=== PATIENT | male | born 1945 | race Caucasian/White ===

== ENCOUNTER → 2020-04-14 | Day surgery (SDC) | payer MEDICARE, OTHER ==
[2020-04-09 15:27] LABS: BASOPHILS # (AUTO) 0.1 (0.0-0.1); BASOPHILS % 0.9 % (0.0-1.0); EOSINOPHILS # (AUTO) 0.3 (0.0-0.4); EOSINOPHILS % 3.6 % (0.0-6.0); LYMPHOCYTES # (AUTO) 3.3 (1.0-3.2); LYMPHOCYTES % 35.8 % (18.0-39.1); MEAN CORPUSCULAR HEMOGLOBIN 25.9 pg (28-32); MEAN CORPUSCULAR HGB CONC 31.7 g/dL (31-35); MEAN CORPUSCULAR VOLUME 81.7 fL (81-99); MONOCYTES # (AUTO) 0.6 (0.2-0.8); MONOCYTES % 6.9 % (4.4-11.3); NEUTROPHILS # (AUTO) 4.9 (2.1-6.9); NEUTROPHILS % 52.6 % (38.7-80.0); PLATELET COUNT 237 x10e3/uL (140-360); RED BLOOD COUNT 5.02 x10e6/uL (4.3-5.7); RED CELL DISTRIBUTION WIDTH 14.8 % (11.7-14.4)
[~2020-04-14] MED LIST: ALOGLIPTIN12.5 MG PO; ALPRAZOLAM0.5 MG PO; AMLODIPINE BESY10 MG PO; CALCITRIOL0.25 MCG PO; CETIRIZINE HCL10 MG PO; FENTANYL CITRATE/PF 100MCG/2 ML INJ ONE; FUROSEMIDE40 MG PO; HYOSCYAMINE 0.125 MG TAB ONE; KETAMINE HCL INJ 50 MG/ML 10 ML VIAL ONE; LIDOCAINE HCL 1% 2 ML AMP ONE; LIDOCAINE HCL 2% LOCAL INJ 5 ML SDV VIAL INJ ONE; LOSARTAN POTASS25 MG PO; METFORMIN HCL500 MG PO; METOPROLOL SUCC25 MG PO; MIDAZOLAM HCL 2 MG/2 ML VIAL ONE; MULTIVITAMINS1 EAC7 PO; PAROXETINE HCL20 MG PO; PRILOSEC10 M1 PO; PROPOFOL IV EMULSION 10 MG/ML 20 ML VIAL ONE; SIMVASTATIN20 MG PO; VITAMIN B-121000 MCG PO; XARELTO10 MG PO
[2020-04-14 13:05] VITALS: BP 155/81
--- NOTE | 2020-04-14 13:27 | Operative Report ---
DATE OF PROCEDURE: 04/14/2020 SURGEON: Dru Portillo MD PROCEDURES: EGD with biopsies and colonoscopy with polypectomy and biopsies. INDICATION FOR EGD: Acid reflux. INDICATIONS FOR COLONOSCOPY: Surveillance colonoscopy, personal history of colon polyps. MEDICATIONS: The patient was done under MAC, please see anesthesiologist's note. PROCEDURE IN DETAIL: With the patient in the left lateral decubitus position, a flexible fiberoptic Olympus gastroscope was introduced into the esophagus under direct visualization without any difficulty. There was patchy intense erythema noted in distal esophagus. The scope was then advanced with ease into the stomach traversing a small hiatal hernia. The patient apparently is status post gastrectomy with gastrojejunostomy. The gastric mucosa revealed some patchy mild inflammatory changes and multiple biopsies were obtained. The scope was then retroflexed into the stomach and the cardia appeared to be within normal limits. There was also some postoperative changes. The scope was then straightened out, it was subsequently withdrawn, and the patient tolerated the procedure well. IMPRESSION: 1. Distal esophagitis. 2. Small hiatal hernia. 3. Status post gastrectomy with gastrojejunostomy. 4. Gastritis, biopsied, biopsies sent to stain for Helicobacter pylori. PLAN: Follow up histology. Initiate Protonix 40 mg one p.o. q.a.m. before meals. The patient was then turned around and after adequate lubrication of the anal canal, the flexible fiberoptic Olympus colonoscope was inserted into the rectum with ease and advanced all the way to the cecum. An approximately 1 cm sessile polyp was noted in the cecum that was removed per hot snare polypectomy and site was hemoclipped x2. The scope was then withdrawn slowly and a large approximately 2 cm submucosal polypoid lesion was noted in the proximal ascending colon, suspicious for lipoma and biopsies were obtained. Diverticular disease was noted to involve the ascending colon. Three polyps were hot snared and one polyp was cold biopsied from the transverse colon. The descending appeared to be within normal limits. Diverticular disease was noted in the sigmoid colon. The rectum appeared to be within normal limits. The scope was then retroflexed into the distal rectum and small internal hemorrhoids were noted, none of which was actively bleeding. The scope was then straightened out, it was subsequently withdrawn, and the patient tolerated the procedure well. IMPRESSION: 1. Cecal polyp, sessile, approximately 1 cm in size, removed per hot snare polypectomy, site hemoclipped x2. 2. Diverticulosis. 3. Rule out lipoma, proximal ascending colon. 4. Transverse colon polyps x4, three hot snared and one cold biopsied. 5. Internal hemorrhoids, none actively bleeding. PLAN: Follow up histology. Initiate high-fiber, low-fat diet. Initiate high-fiber supplement. Timing of followup colonoscopy pending pathology report. Dru Portillo MD [facility] [place] [place] /[id number] cc: Efrain Andre MD
== END | disposition home or self-care (01) ==
LOC: OR 08:05
PROVIDERS: ATTEND Internal Medicine Gastroenterology
DX: K29.70 Gastritis, unspecified, without bleeding (principal); D12.0 Benign neoplasm of cecum; D12.3 Benign neoplasm of transverse colon; K20.9 Esophagitis, unspecified; K21.9 Gastro-esophageal reflux disease without esophagitis; K57.30 Diverticulosis of large intestine without perforation or abscess without bleeding; K63.89 Other specified diseases of intestine; K64.8 Other hemorrhoids; K44.9 Diaphragmatic hernia without obstruction or gangrene; E11.9 Type 2 diabetes mellitus without complications; G47.33 Obstructive sleep apnea (adult) (pediatric); I10 Essential (primary) hypertension; I44.0 Atrioventricular block, first degree; R00.1 Bradycardia, unspecified; F32.9 Major depressive disorder, single episode, unspecified; F41.9 Anxiety disorder, unspecified; Z01.810 Encounter for preprocedural cardiovascular examination; Z01.812 Encounter for preprocedural laboratory examination; Z11.59 Encounter for screening for other viral diseases; Z79.02 Long term (current) use of antithrombotics/antiplatelets; Z79.84 Long term (current) use of oral hypoglycemic drugs; Z90.3 Acquired absence of stomach [part of]; Z93.4 Other artificial openings of gastrointestinal tract status; Z68.37 Body mass index [BMI] 37.0-37.9, adult; Z87.891 Personal history of nicotine dependence
CPT/HCPCS: 36415 ×2; 43239; 45380; 45385; 82948; 85025; 87635; 88305; 88312; 93005; J2001 ×2; J2250; J2704; J3010

== ENCOUNTER 2020-07-23 20:16 | Emergency (ER) | payer MEDICARE, OTHER ==
[~2020-07-23] VITALS: Ht 170.2 cm; Wt 117.9 kg
[~2020-07-23 20:16] MED LIST changes: -FENTANYL CITRATE/PF 100MCG/2 ML INJ ONE; -HYOSCYAMINE 0.125 MG TAB ONE; -KETAMINE HCL INJ 50 MG/ML 10 ML VIAL ONE; -LIDOCAINE HCL 1% 2 ML AMP ONE; -LIDOCAINE HCL 2% LOCAL INJ 5 ML SDV VIAL INJ ONE; -MIDAZOLAM HCL 2 MG/2 ML VIAL ONE; -PROPOFOL IV EMULSION 10 MG/ML 20 ML VIAL ONE
--- NOTE | 2020-07-23 20:26 | Emergency Department Note ---
History of Present Illnes History of Present Illness History of Present Illness This is a 75 year old male seen and evaluated by home health nurse today and there was concern that patient was having difficulty with mentation and cognitive skills. Patient with PMH of CKD, states that he is having acute on chronic joint pain Arrival Mode: [place] Gummed Tape Press Operator Required: No Onset (how long ago): day(s) Radiation: Reports non-radiation Severity: mild Onset quality: gradual Duration (how long): hour(s) Timing of current episode: constant Progression: unchanged Chronicity: new Relieving factors: immobilization, rest Exacerbating factors: movement Past Medical/Family History Physician Review I have reviewed the patient's past medical and family history. Any updates have been documented here. Past Medical History Recent Fever: No Clinical Suspicion of Infectio: No New/Unexplained Change in Ment: Yes Other Surgery: HERNIA, Social History Smoking Cessation: Never Smoker Alcohol Use: None Any Illegal Drug Use: No Other Last Tetanus: UTD Review of Systems Review of Systems Constitutional: Reports weakness EENTM: Reports no symptoms Cardiovascular: Reports no symptoms Respiratory: Reports no symptoms Gastrointestinal: Reports no symptoms Genitourinary: Reports no symptoms Musculoskeletal: Reports joint pain Integumentary: Reports no symptoms Neurological: Reports no symptoms Psychological: Reports no symptoms Endocrine: Reports no symptoms Hematological/Lymphatic: Reports no symptoms Physical Exam Related Data Allergies: Coded Allergies: No Known Drug Allergies (Verified Allergy, Mild, 10/12/10) Vital signs reviewed: Yes Physical Exam CONSTITUTIONAL Constitutional: Present well-developed, Present well-nourished, Present obese, Present morbidly obese HENT HENT: Present normocephalic, Present atraumatic, Present oropharynx clear/moist, Present nose normal HENT L/R: Present left ext ear normal, Present right ext ear normal EYES Eyes: Reports PERRL, Reports conjunctivae normal NECK Neck: Present ROM normal PULMONARY Pulmonary: Present effort normal, Present breath sounds normal CARDIOVASCULAR Cardiovascular: Present regular rhythm, Present heart sounds normal, Present capillary refill normal, Present normal rate GASTROINTESTINAL Abdominal: Present soft, Present nontender, Present bowel sounds normal, Present distension GENITOURINARY Genitourinary: Present exam deferred SKIN Skin: Present warm, Present dry MUSCULOSKELETAL Musculoskeletal: Present ROM normal, Present edema (r knee) NEUROLOGICAL Neurological: Present alert, Present oriented x 3, Present no gross motor or sensory deficits PSYCHOLOGICAL Psychological: Present mood/affect normal, Present judgement normal Results Laboratory Lab results reviewed: Yes Laboratory comments Laboratory Tests Test 07/23/20 22:15 07/23/20 20:22 Urine Color Yellow (YELLOW) Urine Clarity Clear (CLEAR) Urine pH 6 (5 - 7) Urine Specific [place] 1.020 (1.010-1.025) Urine Protein >=300 (NEGATIVE) Urine Glucose (UA) Negative (NEGATIVE) Urine Ketones Negative (NEGATIVE) Urine Blood Trace (NEGATIVE) Urine Nitrite Negative (NEGATIVE) Urine Bilirubin Negative (NEGATIVE) Urine Urobilinogen 1 mg/dL (0.2 - 1) Urine Leukocyte Esterase Negative (NEGATIVE) Urine RBC 11-20 /HPF (0-5) Urine WBC 6-10 /HPF (0-5) Urine Epithelial Cells Few /LPF (NONE) Urine Bacteria Moderate /HPF (NONE) Urine Hyaline Casts 0-1 (0-1) White Blood Count 10.02 x10e3/uL (4.8-10.8) Red Blood Count 5.23 x10e6/uL (4.3-5.7) Hemoglobin 13.7 g/dL (14.0-18.0) Hematocrit 43.4 % (38.2-49.6) Mean Corpuscular Volume 83.0 fL (81-99) Mean Corpuscular Hemoglobin 26.2 pg (28-32) Mean Corpuscular Hemoglobin Concent 31.6 g/dL (31-35) Red Cell Distribution Width 14.9 % (11.7-14.4) Platelet Count 257 x10e3/uL (140-360) Neutrophils (%) (Auto) 52.6 % (38.7-80.0) Lymphocytes (%) (Auto) 37.9 % (18.0-39.1) Monocytes (%) (Auto) 5.9 % (4.4-11.3) Eosinophils (%) (Auto) 2.7 % (0.0-6.0) Basophils (%) (Auto) 0.6 % (0.0-1.0) Neutrophils # (Auto) 5.3 (2.1-6.9) Lymphocytes # (Auto) 3.8 (1.0-3.2) Monocytes # (Auto) 0.6 (0.2-0.8) Eosinophils # (Auto) 0.3 (0.0-0.4) Basophils # (Auto) 0.1 (0.0-0.1) Absolute Immature Granulocyte (auto 0.03 x10e3/uL (0-0.1) Sodium Level 135 mmol/L (136-145) Potassium Level 4.4 mmol/L (3.5-5.1) Chloride Level 104 mmol/L (98-107) Carbon Dioxide Level 22 mmol/L (22-29) Anion Gap 13.4 mmol/L (8-16) Blood Urea Nitrogen 16 mg/dL (7-26) Creatinine 1.56 mg/dL (0.72-1.25) Estimat Glomerular Filtration Rate 44 ML/MIN (60-) BUN/Creatinine Ratio 10 (6-25) Glucose Level 110 mg/dL (74-118) Calcium Level 10.7 mg/dL (8.4-10.2) Total Bilirubin 0.5 mg/dL (0.2-1.2) Aspartate Amino Transf (AST/SGOT) 16 IU/L (5-34) Alanine Aminotransferase (ALT/SGPT) 12 IU/L (0-55) Alkaline Phosphatase 146 IU/L (40-150) Creatine Kinase 18 IU/L (30-200) Creatine Kinase MB 0.40 ng/mL (0-5.0) Troponin I 0.011 ng/mL (0-0.300) B-Type Natriuretic Peptide 657.0 pg/mL (0-100) Total Protein 7.1 g/dL (6.5-8.1) Albumin 3.2 g/dL (3.5-5.0) Globulin 3.9 g/dL (2.3-3.5) Albumin/Globulin Ratio 0.8 (0.8-2.0) Lipase 18 U/L (8-78) Imaging Imaging results reviewed: Yes Impressions [place] [address] Patient Name: ADRIAN MCKEE MR #: [id number] : 1945 Age/Sex: 75/M Req #: [id number] Adm Physician: Ordered by: ADRIAN DORMAN DO Report #: [id number] Location: ER Room/Bed: Procedure: [id number] CT/CT BRAIN WO Exam Date: 07/23/20 Exam Time: 2056 REPORT STATUS: Signed EXAMINATION: Head CT HISTORY: 75-year-old male with pain and memory loss COMPARISON: None. TECHNIQUE: Helical axial images of the head were obtained. Reformatted coronal and sagittal images from the axial data. Dose modulation, iterative reconstruction, and/or weight based adjustment of the mA/kV was utilized to reduce the radiation dose to as low as reasonably achievable. FINDINGS: Parenchyma: 1. Scattered ethmoid confluent periventricular and partida radiata matter hypodensities, most likely nonspecific chronic microvascular ischemic changes. 2. No mass or hemorrhage. No CT evidence of acute territorial vascular insult. Extra-axial spaces:No abnormal density. No extra-axial fluid collections Brain volume: Mild generalized brain volume loss Ventricles: No hydrocephalus or displacement. Arteries: No density suggestive of thrombus. Dural sinuses: No abnormal density. Foramen magnum: No mass, Chiari malformation, or basilar invagination. Sella: No obvious mass. Paranasal/mastoid sinuses: Imaged portions unremarkable. Skull/Scalp: No lytic or blastic lesions. No fractures. IMPRESSION: 1. No acute intracranial abnormalities. 2. Moderate chronic microvascular ischemic changes. 3. Mild generalized parenchymal volume loss. Signed by: Dr. Arturo Blackman M.D. on 07/23/2020 9:32 PM Dictated By: ARTURO BLACKMAN MD 31 Transcribed By: MALATHI on 07/23/202131 COPY TO: ADRIAN DORMAN [place] [address] Patient Name: ADRAIN MCKEE MR #: [id number] : 1945 Age/Sex: 75/M Req #: [id number] Adm Physician: Ordered by: ADRIAN DORMAN DO Report #: [id number] Location: ER Room/Bed: Procedure: [id number] DX/CHEST 2 VIEWS Exam Date: 07/23/20 Exam Time: 2104 REPORT STATUS: Signed EXAMINATION: CHEST 2 VIEWS INDICATION: Hurts all over COMPARISON: Reports from chest x-ray and abdominal CT on 10/12/2010 FINDINGS: TUBES and LINES: None. LUNGS: Low lung volumes. Lungs are clear. No consolidations. PLEURA: Calcifications project in the left lateral hemithorax, can be pleural plaques as described on chest x-ray and abdominal CT from 10/12/2010. HEART AND MEDIASTINUM: The cardiomediastinal silhouette is unremarkable. BONES AND SOFT TISSUES: No acute osseous lesion. Soft tissues are unremarkable. UPPER ABDOMEN: No free air under the diaphragm. IMPRESSION: Calcifications project in the left lateral hemithorax, can be pleural plaques from prior is best as exposure, as described on chest x-ray and abdominal CT from 10/12/2010. A nonemergent chest CT can further characterize. Signed by: Zeke Francis DO on 07/23/2020 9:56 PM Dictated By: ZEKE FRANCIS DO 55 Transcribed By: MALATHI on 07/23/202155 COPY TO: ADRIAN DORMAN DO~ Procedures 12 Lead ECG Interpretation ECG Interpretation : ECG: ECG 1 Gummed Tape Press Operator: Interpreted by ED physician Date: Jul 23, 2020 Time: 22:08 Prior ECG tracings: reviewed Rhythm: sinus rhythm Rate: normal BPM: 66 Conduction: right bundle branch block ST segments normal: Yes T waves normal: Yes Clinical Impression: non-specific ECG Assessment & Plan Medical Decision Making MDM 75 yom presents with weakness Diff Dx : Patohlogic Brain injury (CVA, SAH, SDH) Sepsis, anemia, PNA, UTI, electrolyte abl, and COVID-19 infection Assessment & Plan Final Impression: (1) Confusion (2) Chronic pain (3) UTI (urinary tract infection) Depart Disposition: HOME, SELF-MCC Meds Reported Medications Multivitamin (MULTIVITAMINS) 1 Each Capsule, 1 CAP PO DAILY 04/08/20 Cyanocobalamin (VITAMIN B-12) 1,000 Mcg Tab, 500 MCG PO DAILY, #30 TAB 04/08/20 Calcitriol (CALCITRIOL) 0.25 Mcg Capsule, 0.25 MG PO DAILY, #30 TAB 04/08/20 Furosemide (FUROSEMIDE) 40 Mg Tablet, 40 MG PO Daily, #30 TAB 04/08/20 Losartan Potassium (LOSARTAN POTASSIUM) 25 Mg Tablet, 50 MG PO BID 04/08/20 Rivaroxaban (XARELTO) 10 Mg Tablet, 15 MG PO BIDWM 04/08/20 Simvastatin (SIMVASTATIN) 20 Mg Tablet, 10 MG PO 2100, EA 04/08/20 Amlodipine Besylate (AMLODIPINE BESYLATE) 10 Mg Tablet, 10 MG PO DAILY, #30 TAB 04/08/20 Cetirizine Hcl (CETIRIZINE HCL) 10 Mg Tablet, 10 MG PO DAILY 04/08/20 Alprazolam (ALPRAZOLAM) 0.5 Mg Tablet, 0.5 MG PO PRN, #90 TAB 04/08/20 Paroxetine Hcl (PAROXETINE HCL) 20 Mg Tablet, 60 MG PO DAILY, #30 TAB 04/08/20 Alogliptin Benzoate (Alogliptin) 12.5 Mg Tablet, 12.5 MG PO DAILY 04/08/20 Metoprolol Succinate (METOPROLOL SUCCINATE) 25 Mg Tab.er.24h, 25 MG PO DAILY 04/08/20 Metformin Hcl (METFORMIN HCL) 500 Mg Tablet, 250 MG PO BID, #60 TAB 04/08/20 Omeprazole Magnesium (PRILOSEC) 10 Mg Suspdr.pkt, 20 MG PO DAILY 04/08/20 ADRIAN DORMAN DO Jul 23, 2020 20:26
[2020-07-23] MEDS ORDERED: ASPIRIN 81 MG CHEW TAB PO ONE (20:30)
[2020-07-23 20:43] LABS: BASOPHILS # (AUTO) 0.1 (0.0-0.1); BASOPHILS % 0.6 % (0.0-1.0); EOSINOPHILS # (AUTO) 0.3 (0.0-0.4); EOSINOPHILS % 2.7 % (0.0-6.0); HEMATOCRIT 43.4 % (38.2-49.6); HEMOGLOBIN 13.7 g/dL (14.0-18.0); LYMPHOCYTES # (AUTO) 3.8 (1.0-3.2); LYMPHOCYTES % 37.9 % (18.0-39.1); MEAN CORPUSCULAR HEMOGLOBIN 26.2 pg (28-32); MEAN CORPUSCULAR HGB CONC 31.6 g/dL (31-35); MONOCYTES # (AUTO) 0.6 (0.2-0.8); MONOCYTES % 5.9 % (4.4-11.3); NEUTROPHILS # (AUTO) 5.3 (2.1-6.9); NEUTROPHILS % 52.6 % (38.7-80.0); PLATELET COUNT 257 x10e3/uL (140-360); RED BLOOD COUNT 5.23 x10e6/uL (4.3-5.7); RED CELL DISTRIBUTION WIDTH 14.9 % (11.7-14.4)
--- OUTSIDE RECORDS SUMMARY | 2020-07-23 20:50 | XMS REPORT | Clinical Summary ---
Author Author [facility] Organization [facility] Address Unknown Phone Unavailable Care Team Providers Care Panel Coverer Name Role Phone System, Provider Not In FIXTURE BUILDER-C PCP Unavailabl e Allergies No Known Active Allergies Medications Not on file Active Problems Not on file Surgical History Surgery Date Site/Laterality Comments CHOLECYSTECTOMY ABDOMINAL SURGERY gastric bypass CARDIAC ELECTROPHYSIOLOGY STUDY AND ABLATION Medical History Medical History Date Comments Diabetes mellitus (HCC) Hypertension Atrial fibrillation (HCC) Social History Date Tobacco Use Types Packs/Day Years Used Former Smoker Smokeless Tobacco: Never Used Drinks/Week oz/Week Comments Alcohol Use No Sex Assigned at Date Recorded Not on file Last Filed Vital Signs Not on file Plan of Treatment Health Maintenance Due Date Last Done Comments DIABETIC RETINAL EYE EXAM 1945 DIABETIC FOOT EXAM 1956 URINE MICROALBUMIN 1956 COLONOSCOPY SCREENING 1996 SHINGLES VACCINES (#1) 1996 65+ PNEUMOCOCCAL VACCINE 2011 07/22/2013 (1 of 1 - PPSV23) INFLUENZA VACCINE 05/22/2020 09/19/2016 Results Not on fileafter 07/23/2019 Insurance Type Payer Benefit Subscriber ID Effective Phone Address Plan / Dates Group Medicare MEDICARE MEDICARE [id number] 2011-P MICHELLE, PART A AND resent [place] B PPO [facility] [id number] BENEFIT resent PLAN [id number] [place] ([place]) [place] [phone] Advance Directives For more information, please contact: [phone] 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
--- OUTSIDE RECORDS SUMMARY | 2020-07-23 20:50 | XMS REPORT | Clinical Summary ---
Author Author [facility] Address Unknown Phone Unavailable Care Team Providers Care Surveillance System Monitor Name Role Phone Pcp, No PCP Unavailable Allergies Not on File Medications Not on file Active Problems Not on file Social History Date Tobacco Use Types Packs/Day Years Used Never Assessed Sex Assigned at Date Recorded Not on file Industry Job Start Date Occupation Not on file Not on file Not on file Travel End Travel History Travel Start No recent travel history available. Last Filed Vital Signs Not on file Plan of Treatment Not on file Results Not on fileafter 07/23/2019
--- OUTSIDE RECORDS SUMMARY | 2020-07-23 20:51 | XMS REPORT | Continuity of Care Document ---
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 Name Role Phone [facility] Unavailable Un available Problems Problem Status Onset Date Classification Date Reported Comments Source RIGHT KNEE OSTEOARTHRITIS Acti ve 07/02/2020 [facility] E21.3 Active 02/06/2017 [facility] Diastolic dysfunction Active Problem 11/14/2018 [facility] Congestive heart failure with LV diastol ic dysfunction, NYHA class 1 Active Prob dafne 11/14/2018 [facility] Angina at rest Active Problem 11/14/2018 [facility] Hypertension Active Problem 11/14/2018 [facility] Dyslipidemia Active Problem 11/14/2018 [facility] Angina pectoris Active Problem 11/14/2018 [facility] RBBB Active Diagnosis 11/24/2017 [facility] Other symptoms involving cardiovascular system Active Diagnosis 09/18/2018 [facility] Dyspnea, unspecified Active Diagnosis 11/24/2017 [facility] Dizziness and giddiness Active Diagnosis 09/18/2018 [facility] Abnormal nuclear stress test A ctive Diagnosis 0 11/24/2017 [facility] Paroxysmal atrial fibrillation Active Problem [facility] SOB (shortness of breath) Acti ve Diagnosis 0 01/24/2018 [facility] Systolic congestive heart failure, unspe cified chronicity Active Diag nosis 01/24/2018 [facility] 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, angina presence unspecified Active Problem 11/14/2018 [facility] Atrial fibrillation, unspecified type Active Problem [facility] SOB (shortness of breath) on exertion Active Diagnosis 09/18/2018 [facility] Swelling of lower extremity Ac tive Diagnosis 1 11/03/2014 [facility] H/O intermittent claudication Active Diagnosis 1 11/03/2014 [facility] Other abnormalities of breathing Active Diagnosis 1 11/09/2015 [facility] HYPERPARATHYROIDISM, UNSPECIFIED Active [facility] PAIN IN RIGHT KNEE Active [facility] Medications Medication Details Route Status Patient Instructions Ordering Provider Order Date Source Viagra 1 tablet as needed Orally Active 25 MG Orally Once a day [facility] 10/04/2018 [facility] Zaroxolyn 1 tablet Orally Active 5 MG Orally once a day 01/22/2018 [facility] Potassium Chloride 1 tablet wi th food Orally Active 20 MEQ Orally Once a day 01/08/2018 [facility] Lasix 1 tablet Orally Active 40 MG Orally Once a day 01/08/2018 [facility] Potassium Chloride 1 tablet wi th food Orally Active 40 Orally Once a day 01/08/2018 [facility] Xarelto 1 tablet with food Orally Active 20 MG Orally Once a day 12/18/2017 [facility] Labetalol HCl 1 tablet Orally Active 200 MG Orally every 8 h rs 10/25/2017 [facility] Sildenafil Citrate 1 tablet as needed Orally Active 100 MG Orally Once a day [facility] Omeprazole 1 capsule Orally Active 20 MG Orally Once a day [facility] Simvastatin 1 tablet in the ev ening Orally Active 40 MG Orally Once a day [facility] Losartan Potassium 1 tablet Orally Active 100 MG Orally Once a day [facility] Fluoxetine HCl 1 capsule in th e morning Orally Active 20 MG Orally Once a day [facility] Alprazolam 1 tablet Orally Active 0.5 MG Orally as needed [facility] Metformin HCl 1 tablet with me als Orally Active 850 MG Orally Twice a day [facility] Folbee 1 tablet Orally Active 2.5-25-1 MG Orally Once a day [facility] NIFEdipine ER 1 tablet Orally Active 30 MG Orally Once a day [facility] Cetirizine HCl 1 tablet as nee ded Orally Active 10 MG Orally Once a day [facility] Omeprazole 1 capsule Orally Active 20 MG Orally Once a day [facility] Sildenafil Citrate 1 tablet as needed Orally Active 100 MG Orally Once a day [facility] Metformin HCl 1 tablet with me als Orally Active 850 MG Orally Twice a day [facility] Alprazolam 1 tablet Orally Active 0.5 MG Orally as needed [facility] Simvastatin 1 tablet in the ev ening Orally Active 40 MG Orally Once a day [facility] Losartan Potassium 1 tablet Orally Active 100 MG Orally Once a day [facility] Folbee 1 tablet Orally Active 2.5-25-1 MG Orally Once a day [facility] Fluoxetine HCl 1 capsule in th e morning Orally Active 20 MG Orally Once a day [facility] Cetirizine HCl 1 tablet as nee ded Orally Active 10 MG Orally Once a day [facility] NIFEdipine ER 1 tablet Orally Active 30 MG Orally Once a day [facility] Metformin HCl 0.5 tablet with meals Orally Active 500 MG Orally Twice a day [facility] Aspirin Adult Low Dose 1 tablet Orally Active 81 MG Orally Once a day [facility] Isosorbide Dinitrate 1 tablet Orally Active 20 MG Orally Twice a day [facility] Rivaroxaban 1 tablet with food Orally Active 20 MG Orally Once a day [facility] Furosemide not defined Orally Active 40 MG Orally Once a day [facility] Simvastatin 1 tablet in the ev ening Orally Active 10 MG Orally Once a day [facility] Fluoxetine HCl 1 capsule in th e morning Orally Active 20 MG Orally three times a day [facility] Metformin HCl 0.5 tablet with meals Orally Active 500 MG Orally Twice a day [facility] Fluoxetine HCl 1 capsule in th e morning Orally Active 20 MG Orally three times a day [facility] Metformin HCl 1 tablet with me als Orally Active 500 MG Orally three times a day [facility] Aspirin 1 tablet Orally Active 81 MG Orally Once a day [facility] Allergies, Adverse Reactions, Alerts Substance Category Reaction Severity Reaction type Status Date Reported Comments Source N.K.D.A. Adverse Reaction Info Not Available Adverse Reaction Active 09/16/2018 [facility] Immunizations No Data Provided for This Section Results No Data Provided for This Section Pathology Reports No Data Provided for This Section Diagnostic Reports No Data Provided for This Section Consultation Notes No Data Provided for This Section Discharge Summaries No Data Provided for This Section History and Physicals No Data Provided for This Section Vital Signs Vital Sign Value Date Comments Source Weight 245 09/16/2018 [facility] Heart Rate 84 09/16/2018 [facility] Diastolic (mm Hg) 88 09/16/2018 [facility] Systolic (mm Hg) 162 09/16/2018 [facility] Weight 245 08/26/2018 [facility] Heart Rate 103 08/26/2018 [facility] Diastolic (mm Hg) 60 08/26/2018 [facility] Systolic (mm Hg) 120 08/26/2018 [facility] Weight 245 08/07/2018 [facility] Heart Rate 103 08/07/2018 [facility] Diastolic (mm Hg) 84 08/07/2018 [facility] Systolic (mm Hg) 138 08/07/2018 [facility] Weight 241 04/10/2018 [facility] Heart Rate 70 04/10/2018 [facility] Diastolic (mm Hg) 70 04/10/2018 [facility] Systolic (mm Hg) 140 04/10/2018 [facility] Weight 247 01/22/2018 [facility] Heart Rate 64 01/22/2018 [facility] Diastolic (mm Hg) 84 01/22/2018 [facility] Systolic (mm Hg) 178 01/22/2018 [facility] Weight 242 01/08/2018 [facility] Heart Rate 60 01/08/2018 [facility] Diastolic (mm Hg) 80 01/08/2018 [facility] Systolic (mm Hg) 140 01/08/2018 [facility] Weight 275 12/18/2017 [facility] Heart Rate 75 12/18/2017 [facility] Diastolic (mm Hg) 100 12/18/2017 [facility] Systolic (mm Hg) 150 12/18/2017 [facility] Weight 222 11/22/2017 [facility] Heart Rate 71 11/22/2017 [facility] Diastolic (mm Hg) 80 11/22/2017 [facility] Systolic (mm Hg) 132 11/22/2017 [facility] Weight 233 10/17/2017 [facility] Heart Rate 74 10/17/2017 [facility] Diastolic (mm Hg) 90 10/17/2017 [facility] Systolic (mm Hg) 188 10/17/2017 [facility] Weight 225 10/16/2017 [facility] Heart Rate 68 10/16/2017 [facility] Diastolic (mm Hg) 80 10/16/2017 [facility] Systolic (mm Hg) 140 10/16/2017 [facility] Weight 213 03/29/2017 [facility] Heart Rate 58 03/29/2017 [facility] Diastolic (mm Hg) 68 03/29/2017 [facility] Systolic (mm Hg) 138 03/29/2017 [facility] Weight 213 03/29/2017 [facility] Heart Rate 58 03/29/2017 [facility] Diastolic (mm Hg) 68 03/29/2017 [facility] Systolic (mm Hg) 138 03/29/2017 [facility] Weight 243 09/19/2016 [facility] Heart Rate 95 09/19/2016 [facility] Diastolic (mm Hg) 82 09/19/2016 [facility] Systolic (mm Hg) 138 09/19/2016 [facility] Weight 216 03/08/2016 [facility] Heart Rate 62 03/08/2016 [facility] Diastolic (mm Hg) 72 03/08/2016 [facility] Systolic (mm Hg) 120 03/08/2016 [facility] Weight 243 09/08/2015 [facility] Heart Rate 76 09/08/2015 [facility] Diastolic (mm Hg) 84 09/08/2015 [facility] Systolic (mm Hg) 132 09/08/2015 [facility] Weight 244 09/01/2015 [facility] Heart Rate 64 09/01/2015 [facility] Diastolic (mm Hg) 70 09/01/2015 [facility] Systolic (mm Hg) 144 09/01/2015 [facility] Encounters Location Location Details Encounter Type Encounter Number Reason For Visit Attending Provider ADM Date DC Date Status Source [facility] NP [id number] 09/01/2015 09/01/2015 [facility] NP [id number] 09/01/2015 09/01/2015 [facility] [place] NP [id number] 09/01/2015 09/01/2015 [facility] NP [id number] 09/01/2015 09/01/2015 [facility] NP [id number] 09/01/2015 09/01/2015 [facility] NP [id number] 09/01/2015 09/01/2015 [facility] NP [id number] 09/01/2015 09/01/2015 [facility] NP [id number] 09/01/2015 09/01/2015 [facility] QUICKT [id number] 09/02/20 15 09/02/2015 [facility] NST [id number] 09/02/20 15 09/02/2015 [facility] QUICKT [id number] 09/02/20 15 09/02/2015 [facility] QUICKT [id number] 09/02/20 15 09/02/2015 [facility] QUICKT [id number] 09/02/20 15 09/02/2015 [facility] QUICKT [id number] 09/02/20 15 09/02/2015 [facility] QUICKT [id number] 09/02/20 15 09/02/2015 [facility] ECHO [id number] 09/02/20 15 09/02/2015 [facility] MIRANDA [id number] 09/02/20 15 09/02/2015 [facility] ECHO [id number] 09/02/20 15 09/02/2015 [facility] ECHO [id number] 09/02/20 15 09/02/2015 [facility] ECHO [id number] 09/02/20 15 09/02/2015 [facility] ECHO [id number] 09/02/20 15 09/02/2015 [facility] ECHO [id number] 09/02/20 15 09/02/2015 [facility] ECHO [id number] 09/02/20 15 09/02/2015 [facility] MIRANDA [id number] 09/02/20 15 09/02/2015 [facility] MIRANDA [id number] 09/02/20 15 09/02/2015 [facility] MIRANDA [id number] 09/02/20 15 09/02/2015 [facility] MIRANDA [id number] 09/02/20 15 09/02/2015 [facility] MIRANDA [id number] 09/02/20 15 09/02/2015 [facility] MIRANDA [id number] 09/02/20 15 09/02/2015 [facility] NST, ECHO, MIRANDA [id number] 09/08/20 15 09/08/2015 [facility] NST, ECHO, MIRANDA [id number] 09/08/20 15 09/08/2015 [facility] NST, ECHO, MIRANDA [id number] 09/08/20 15 09/08/2015 [facility] NST, ECHO, MIRANDA [id number] 09/08/20 15 09/08/2015 [facility] 6 months [id number] 03/08/20 16 03/08/2016 [facility] 6 months [id number] 03/08/20 16 03/08/2016 [facility] 6 months [id number] 03/08/20 16 03/08/2016 [facility] ECHO [id number] 09/07/20 16 09/07/2016 [facility] ECHO [id number] 09/07/20 16 09/07/2016 [facility] F/U ECHO [id number] 09/19/20 16 09/19/2016 [facility] [id number] Yovani Heredia 02/08/2017 02/09/2017 [facility] Procedures No Data Provided for This Section Assessment and Plan No Data Provided for This Section Plan of Care No Data Provided for This Section Social History Social History Date Source No data available for this section 02/09/2017 [facility] Social History ElementQualifiersDate Rep orted Caffeine: . Do you drink caffeine? Yes OFF CAFFEI NE x 1 MONTH, BUT BEFORE THAN DRANK 4 12-PACKS A WEEK, NO TEA, NO COFFEE Sep 19, 2016 Smoking: . Are you a: Former smoker, How many pa cks per day? 2 or more packs, How long have you smoked? 5 years or more Sep 19, 2016 Alcohol: . Do you drink alcohol? No DRANK ALCOHO L BEFORE BUT NOT NOW Sep 19, 2016 09/19/2016 [facility] Family History No Data Provided for This Section Advance Directives No Data Provided for This Section Functional Status No Data Provided for This Section
--- OUTSIDE RECORDS SUMMARY | 2020-07-23 20:51 | XMS REPORT | Continuity of Care Document ---
Author Author [facility] t Organization [facility] Address 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 3 Active 02/06/2017 [facility] Active 2017-02-06 00:00:00 2017-02-08 09:59:00 Sary Yuen History of Arthritis History of Arthritis Problem Resolved [facility] History of Asthma History of Asthma Problem Resolved [facility] History of Diabetes History of Diabetes Problem Resolved [facility] History of Gallbladder disease History of Gallbladder disease Probl em Resolved [facility] History of Gastric ulcer History of Gastric ulcer Problem Resolved [facility] History of Hay fever History of Hay fever Problem Resolved [facility] History of Heart disease History of Heart disease Problem Resolved [facility] History of Hernia History of Hernia Problem Resolved [facility] History of High blood pressure History of High blood pressure Probl em Resolved [facility] History of Lung disease History of Lung disease Problem Resolved [facility] History of Staph infection History of Staph infection Problem Resolved [facility] Congestive heart failure with LV diastolic dysfunction , NYHA class 1 Congestive heart failure with LV diastolic dysfunction, NYHA class 1 Active Problem 11/14/2018 [facility] Cardiovascular Problem Active 2018-11-14 03:54:04 Sary Yuen Angina at rest Mariella na at rest Active Problem 11/14/2018 [facility] Cardiovascular Problem Active 2018-11-14 03:54:04 Sary Yuen Dyslipidemia Dysl ipidemia Active Problem 11/14/2018 [facility] Cardiovascular Problem Active 2018-11-14 03:54:04 Sary Yuen Angina pectoris Mariella na pectoris Active Problem 11/14/2018 [facility] Cardiovascular Problem Active 2018-11-14 03:54:04 Sary Yuen RBBB RBBB Active Diagnosis 11/24/2017 [facility] Cardi[facility] Diagnosis Active 2017-11-24 03:45:31 Sary Yuen Other symptoms involving cardiovascular system Other symptoms involving cardiovascular system Active Diagnosis 09/18/2018 [facility] Active 2018-09-18 03:45:56 Ok morial [facility] Dyspnea, unspecified Dysp za, unspecified Active Diagnosis 11/24/2017 [facility] Active 2017-11-24 03:45:31 Sary Yuen Dizziness and giddiness Dizz iness and giddiness Active Diagnosis 09/18/2018 [facility] Cardi[facility] Diagnosis Active 2018-09-18 03:45:56 Sary Yuen Abnormal nuclear stress test A bnormal nuclear stress test Active Diagnosis 11/24/2017 [facility] Active 2017-11-24 03:45:31 Sary Yuen Paroxysmal atrial fibrillation Paroxysmal atrial fibrillation Active Problem 11/14/2018 [facility] Cardiovascular Problem Active 2018-11-14 03:54:04 Sary Yuen Systolic congestive heart failure, unspecified chronic ity Systolic congestive heart failure, unspecified chronicity Active Diagnosis 01/24/2018 [facility] Diagnosis Active 2018-01-24 02:46:45 Sary Yuen 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, 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, angina presence unspecified Active Problem 11/14/2018 [facility] Cardiovascular Problem Active 2018-11-14 03 :54:04 Sary Yuen Atrial fibrillation, unspecified type Atrial fibrillation, unspecified type Active Problem 11/14/2018 [facility] Cardiovascular Problem Active 2018-11-14 03:54:04 Sary Yuen SOB (shortness of breath) on exertion SOB (shortness of breath) on exertion Active Diagnosis 09/18/2018 [facility] Diagnosis Active 2018-09-18 03:45:56 Feng Yuen Swelling of lower extremity Sw elling of lower extremity Active Diagnosis 09/03/2015 [facility] Diagnosis Active 2015-09-03 04:00:54 Sary Yuen H/O intermittent claudication H/O intermittent claudication Active Diagnosis 09/03/2015 [facility] Diagnosis Active 2015-09-03 04:00:54 Sary Yuen Other abnormalities of breathing Other abnormalities of breathing Active Diagnosis 09/09/2016 [facility] Diagnosis Active 2016-09-09 03:52:35 Sary Yuen HYPERPARATHYROIDISM, UNSPECIFIED HYPERPARATHYROIDISM, UNSPECIFIED Active [facility] Active 2017-02-08 09 :59:00 Sary Yuen PAIN IN RIGHT KNEE PAIN IN RIGHT KNEE Active [facility] Diagnosis Active 2020-07-21 10:44:00 Ok lul Yuen Allergies, Adverse Reactions, Alerts Allergy Name Allergy Type Status Severity Reaction(s) Onset Date Inacti ve Date Treating Clinician Comments Source N.K.D.A. N.K.D.A. Active Info Not Available 2018-09-16 00:00:00 Sary Yuen No Known Allergies DA Active U 2017-03-20 00:00:00 [facility] Social History Social Habit Start Date Stop Date Quantity Comments Source Sex Assigned At [facility] Tobacco use and exposure 2018-03-01 00:00:00 2018-03-01 00:00:00 Jill gil used [facility] Alcohol intake 2018-03-01 00:00:00 2018-03-01 00:00:00 Current non-drinker of alcohol (finding) [facility] Social History 2017-02-09 04:59:00 2017-02-09 04:59:00 Sary Yuen Caffeine: 2016-09-19 00:00:00 2016-09-19 00:00:00 Sary Yuen Smoking Status Start Date Stop Date Source Former smoker 2018-03-01 00:00:00 2018-03-01 00:00:00 [facility] Medications Ordered Medication Name Filled Medication Name Start Date Stop Da te Current Medication? Ordering Clinician Indication Dosage Frequency Signature (SIG) Comments Components Source Viagra 2018-10-04 00:00:00 Yes Mohamed Sekou 1 tablet as needed [facility] Sildenafil Citrate 2018-09-18 03:45:56 Yes Mohamed Soraya by 1 tablet as needed [facility] Omeprazole 2018-09-18 03:45:56 Yes Mohamed Sekou 1 capsule [facility] Losartan Potassium 2018-09-18 03:45:56 Yes Mohamed Sekou 1 tablet [facility] Alprazolam 2018-09-18 03:45:56 Yes Mohamed Sekou 1 tablet [facility] Cetirizine HCl 2018-09-18 03:45:56 Yes Mohamed Sekou 1 tablet as needed [facility] Metformin HCl 2018-09-18 03:45:56 Yes Mohamed Sekou 0.5 tablet with meals [facility] Aspirin Adult Low Dose 2018-09-18 03:45:56 Yes Mohamed S halaby 1 tablet [facility] Isosorbide Dinitrate 2018-09-18 03:45:56 Yes Mohamed Sekou 1 tablet [facility] Rivaroxaban 2018-09-18 03:45:56 Yes Mohamed Sekou 1 tablet with food [facility] Furosemide 2018-09-18 03:45:56 Yes Mohamed Sekou not defined [facility] Simvastatin 2018-09-18 03:45:56 Yes Mohamed Sekou 1 tablet in the evening [facility] Fluoxetine HCl 2018-09-18 03:45:56 Yes Mohamed Sekou 1 capsule in the morning [facility] Metformin HCl 2018-08-28 03:45:55 Yes Mohamed Sekou 0.5 tablet with meals [facility] Fluoxetine HCl 2018-08-28 03:45:55 Yes Mohamed Sekou 1 capsule in the morning [facility] Simvastatin 2018-08-21 02:46:45 Yes Mohamed Sekou 1 tablet in the evening [facility] Fluoxetine HCl 2018-08-21 02:46:45 Yes Mohamed Sekou 1 capsule in the morning [facility] Folbee 2018-04-12 02:47:39 Yes Mohamed Sekou 1 tablet [facility] Zaroxolyn 2018-01-22 00:00:00 Yes Mohamed Sekou 1 tablet [facility] Potassium Chloride 2018-01-08 00:00:00 Yes Mohamed Soraya by 1 tablet with food [facility] Lasix 2018-01-08 00:00:00 Yes Mohamed Sekou 1 t ablet [facility] Potassium Chloride 2018-01-08 00:00:00 Yes Mohamed Soraya by 1 tablet with food [facility] Xarelto 2017-12-18 00:00:00 Yes Mohamed Sekou 1 tablet with food [facility] Labetalol HCl 2017-10-25 00:00:00 Yes Mohamed Sekou 1 tablet [facility] NIFEdipine ER 2017-10-19 03:45:59 Yes Mohamed Sekou 1 tablet [facility] Metformin HCl 2017-10-18 03:46:18 Yes Mohamed Sekou 1 tablet with meals [facility] Omeprazole 2017-04-03 02:45:43 Yes Mohamed Sekou 1 capsule [facility] Sildenafil Citrate 2017-04-03 02:45:43 Yes Mohamed Soraya by 1 tablet as needed [facility] Metformin HCl 2017-04-03 02:45:43 Yes Mohamed Sekou 1 tablet with meals [facility] Alprazolam 2017-04-03 02:45:43 Yes Mohamed Sekou 1 tablet [facility] Simvastatin 2017-04-03 02:45:43 Yes Mohamed Sekou 1 tablet in the evening [facility] Losartan Potassium 2017-04-03 02:45:43 Yes Mohamed Sekou 1 tablet [facility] Folbee 2017-04-03 02:45:43 Yes Mohamed Sekou 1 tablet [facility] Fluoxetine HCl 2017-04-03 02:45:43 Yes Mohamed Sekou 1 capsule in the morning [facility] Cetirizine HCl 2017-04-03 02:45:43 Yes Mohamed Sekou 1 tablet as needed [facility] NIFEdipine ER 2017-04-03 02:45:43 Yes Mohamed Sekou 1 tablet [facility] Aspirin 2015-09-10 03:54:40 Yes Mohamed Sekou 1 tablet [facility] Metformin HCl 2015-09-02 03:51:09 Yes Mohamed Sekou 1 tablet with meals [facility] Vital Signs Vital Name Observation Time Observation Value Comments Source Body height 2020-07-01 18:00:00 69 [in_us] [facility] Weight 2020-07-01 18:00:00 246 [lb_av] [facility] Body mass index (BMI) [Ratio] 2020-07-01 18:00:00 36.33 kg/m2 [facility] Weight 2018-09-16 15:00:00 [facility] Rate 2018-09-16 15:00:00 [facility] Diastolic (mm Hg) 2018-09-16 15:00:00 [facility] Systolic (mm Hg) 2018-09-16 15:00:00 Mane[facility] Weight 2018-08-26 19:45:00 [facility] Heart Rate 2018-08-26 19:45:00 [facility] Diastolic (mm Hg) 2018-08-26 19:45:00 [facility] Systolic (mm Hg) 2018-08-26 19:45:00 [facility] Weight 2018-08-07 16:15:00 [facility] Heart Rate 2018-08-07 16:15:00 [facility] Diastolic (mm Hg) 2018-08-07 16:15:00 [facility] Systolic (mm Hg) 2018-08-07 16:15:00 Manuel [facility] Weight 2018-04-10 18:15:00 [facility] Heart Rate 2018-04-10 18:15:00 [facility] Diastolic (mm Hg) 2018-04-10 18:15:00 [facility] Systolic (mm Hg) 2018-04-10 18:15:00 Manuel [facility] Weight 2018-01-22 19:45:00 [facility] Heart Rate 2018-01-22 19:45:00 [facility] Diastolic (mm Hg) 2018-01-22 19:45:00 [facility] Systolic (mm Hg) 2018-01-22 19:45:00 [facility] Weight 2018-01-08 18:15:00 [facility] Heart Rate 2018-01-08 18:15:00 [facility] Diastolic (mm Hg) 2018-01-08 18:15:00 [facility] Systolic (mm Hg) 2018-01-08 18:15:00 Manuel [facility] Weight 2017-12-18 22:15:00 [facility] Rate 2017-12-18 22:15:00 [facility] Diastolic (mm Hg) 2017-12-18 22:15:00 [facility] [place] Systolic (mm Hg) 2017-12-18 22:15:00 [facility] Weight 2017-11-22 15:30:00 [facility] Heart Rate 2017-11-22 15:30:00 [facility] Diastolic (mm Hg) 2017-11-22 15:30:00 [facility] Systolic (mm Hg) 2017-11-22 15:30:00 Manuel [facility] Weight 2017-10-17 17:00:00 [facility] Heart Rate 2017-10-17 17:00:00 [facility] Diastolic (mm Hg) 2017-10-17 17:00:00 [facility] Systolic (mm Hg) 2017-10-17 17:00:00 Manuel [facility] [place] Weight 2017-10-16 15:45:00 [facility] Heart Rate 2017-10-16 15:45:00 [facility] Diastolic (mm Hg) 2017-10-16 15:45:00 [facility] Systolic (mm Hg) 2017-10-16 15:45:00 [facility] Weight 2017-03-29 16:45:00 [facility] Heart Rate 2017-03-29 16:45:00 [facility] Diastolic (mm Hg) 2017-03-29 16:45:00 [facility] Systolic (mm Hg) 2017-03-29 16:45:00 Manuel [facility] Weight 2017-03-29 15:45:00 [facility] Heart Rate 2017-03-29 15:45:00 [facility] Diastolic (mm Hg) 2017-03-29 15:45:00 [facility] Systolic (mm Hg) 2017-03-29 15:45:00 [facility] Weight 2016-09-19 20:00:00 [facility] Rate 2016-09-19 20:00:00 [facility] Diastolic (mm Hg) 2016-09-19 20:00:00 [facility] Systolic (mm Hg) 2016-09-19 20:00:00 [facility] Weight 2016-03-08 18:15:00 [facility] Rate 2016-03-08 18:15:00 [facility] Diastolic (mm Hg) 2016-03-08 18:15:00 [facility] Systolic (mm Hg) 2016-03-08 18:15:00 [facility] Weight 2015-09-08 19:00:00 [facility] Rate 2015-09-08 19:00:00 [facility] Diastolic (mm Hg) 2015-09-08 19:00:00 [facility] Systolic (mm Hg) 2015-09-08 19:00:00 Manuel [facility] Weight 2015-09-01 19:00:00 [facility] Heart Rate 2015-09-01 19:00:00 [facility] Diastolic (mm Hg) 2015-09-01 19:00:00 [facility] Systolic (mm Hg) 2015-09-01 19:00:00 Manuel [facility] Procedures Procedure Date / Time Performed Performing Clinician [facility] e History of Hernia repair [facility] History of Gallbladder surgery [facility] Plan of Care Planned Activity Planned Date Details Comments Source Future Scheduled Test 2020-05-22 00:00:00 INFLUENZA VACCINE [code = INFLUENZA VACCINE] [facility] Scheduled Test 2011 00:00:00 65+ PNEUMOCOCCAL V ACCINE (1 of 1 - PPSV23) [code = 65+ PNEUMOCOCCAL VACCINE (1 of 1 - PPSV23)] [facility] Scheduled Test 1996 00:00:00 COLONOSCOPY SCREEN ING [code = COLONOSCOPY SCREENING] [facility] Scheduled Test 1996 00:00:00 SHINGLES VACCINES (#1) [code = SHINGLES VACCINES (#1)] [facility] Scheduled Test 1956 00:00:00 DIABETIC FOOT EXAM [code = DIABETIC FOOT EXAM] [facility] Scheduled Test 1956 00:00:00 URINE MICROALBUMIN [code = URINE MICROALBUMIN] [facility] Scheduled Test 1946 00:00:00 DIABETIC RETINAL E YE EXAM [code = DIABETIC RETINAL EYE EXAM] [facility] Encounters Start Date/Time End Date/Time Encounter Type Admission Type Att[facility] Care Department Encounter ID Source 2020-07-06 13:00:00 2020-07-06 13:00:00 Outpatient [id number] 2020-07-01 13:00:00 2020-07-01 13:00:00 Appointment; VINITA CHOI P.A. HAWKS, CHRISTOPHER, P[facility]A. [facility] Orthopedics [facility] [id number] [facility] 2018-10-11 11:45:00 2018-10-11 11:45:00 [place] [id number] [facility] 2018-10-04 10:11:00 2018-10-04 10:11:00 [place] Pa [id number] [facility] 2018-09-27 16:15:00 2018-09-27 16:15:00 Out[place] [id number] [facility] 2018-09-16 09:00:00 2018-09-16 09:00:00 Outpatient [place] [id number] [facility] 2018-08-26 13:45:00 2018-08-26 13:45:00 Outpatient Gene Sapp [place] [id number] [facility] 2018-08-16 13:00:00 2018-08-16 13:00:00 Outpatient Gene Sapp Md [place] [id number] [facility] 2018-08-07 11:15:00 2018-08-07 11:15:00 Outpatient [place] [id number] [facility] 2018-08-07 11:15:00 2018-08-07 11:15:00 Outpatient Gene Sapp Md Pa [place] Pa [id number] [facility] 2018-04-10 13:15:00 2018-04-10 13:15:00 Out[place] Pa [id number] [facility] 2018-04-10 13:00:00 2018-04-10 13:00:00 Outpatient [place] Pa [id number] [facility] 2018-01-24 09:06:00 2018-01-24 09:06:00 Outpatient Gene Sapp [place] [id number] [facility] 2018-01-23 14:46:00 2018-01-23 14:46:00 Out[place] [id number] [facility] 2018-01-23 14:45:00 2018-01-23 14:45:00 Out[place] [id number] [facility] 2018-01-22 14:45:00 2018-01-22 14:45:00 Out[place] [id number] [facility] 2018-01-22 14:30:00 2018-01-22 14:30:00 Outpatient Gene Sapp Md [place] Pa [id number] [facility] 2018-01-18 08:29:00 2018-01-18 08:29:00 Out[place] Pa [id number] [facility] 2018-01-08 13:15:00 2018-01-08 13:15:00 Outpatient Gene Spap [place] [id number] [facility] 2017-12-18 16:15:00 2017-12-18 16:15:00 Outpatient Gene Sapp Md Pa [place] Pa [id number] [facility] 2017-11-22 09:30:00 2017-11-22 09:30:00 Outpatient Gene Sapp [place] [id number] [facility] 2017-11-07 15:40:00 2017-11-07 15:40:00 Out[place] [id number] [facility] 2017-10-17 11:00:00 2017-10-17 11:00:00 [place] [id number] [facility] 2017-10-16 09:45:00 2017-10-16 09:45:00 [place] [id number] [facility] 2017-10-16 09:00:00 2017-10-16 09:00:00 Outpatient [place] Pa [id number] [facility] 2017-10-08 15:30:00 2017-10-08 15:30:00 Out[place] Pa [id number] [facility] 2017-03-29 10:45:00 2017-03-29 10:45:00 Out[place] Pa [id number] [facility] 2017-03-29 10:45:00 2017-03-29 10:45:00 Out[place] [id number] [facility] 2017-02-08 09:50:00 2017-02-08 23:59:00 Outpatient Angely Heredia [facility] [id number] 2016-09-19 14:00:00 2016-09-19 14:00:00 Outpatient Sekou ADAMES PA [id number] [facility] 2016-09-07 15:00:00 2016-09-07 15:00:00 Outpatient Sekou ADAMES PA [id number] [facility] 2016-03-08 13:15:00 2016-03-08 13:15:00 Outpatient Sekou ADAMES PA [id number] [facility] 2015-09-08 13:00:00 2015-09-08 13:00:00 Outpatient Sekou ADAMES PA [id number] [facility] 2015-09-02 11:15:00 2015-09-02 11:15:00 Outpatient Sekou ADAMES PA [id number] [facility] 2015-09-02 11:00:00 2015-09-02 11:00:00 Outpatient Sekou ADAMES PA [id number] [facility] 2015-09-02 08:30:00 2015-09-02 08:30:00 Outpatient Sekou MirandaMD PA [id number] [facility] 2015-09-01 13:00:00 2015-09-01 13:00:00 Outpatient Sekou BAUTISTA [id number] [facility] Results Test Description Test Time Test Comments Results Result Comments Source [U] XRAY KNEE 3 VWS RIGHT [id number] 2020-07-01 12:48:00 Images acquired, not reported on this accession number. [facility] U/S, ABDOMINAL, LIMITED 2019-06-17 10:53:00 Reason for Exam:->z0 0.6 FINAL REPORT Limited Abdominal ultrasound. Clinical history: z00.6 Comparison study: December 13, 2018 Findings: The visualized liver is normal in appearance with a normal echotexture. It measures 17.0 cm in span. Portions of the left lobe are obstructed by bowel gas. There is no evidence of intra or extrahepatic biliary dilatation with the common bile duct measuring 6 mm in siz e. The main portal vein diameter is 1.0 cm. The gallbladder is normal in appearance with no gallstones and no evidence of pericholecystic fluid. The pancreas is obscured from view. The right kidney measures 10.4 x 4.9 x 3.9 cm. No ascites is present. The proximal aorta is unremarkable. The remainder of the abdomen was not assessed. Impression: 1. Status post cholecystectomy.2. Portions of the left lobe of the liver obscured by bowel gas.3. Pancreas obscured from view. Signed: Raphael Adkins MDReport Verified Date/Time: 06/17/2019 10:53:19 Reading Location: [address] Radiology Reading Room ED 2019-04-18 12:10:00 Test Item GLUBED (test code = GLUBED) 181 mg/dL 70-110 H BASIC METABOLIC [id number] 07:58:00* Test Item Value Reference Range Interpretation Comments SODIUM (test code = NA) 142 mmol/l 134.0-147.0 N POTASSIUM (test code = K) 3.8 mmol/L 3.6-5.2 N CHLORIDE (test code = CL) 108 mmol/l 98.0-107.0 H CARBON DIOXIDE (test code = CO2) 27.5 mmol/l 21.0-33.0 N ANION GAP (test code = GAP) 10.3 0-20 N GLUCOSE (test code = GLU) 129 mg/dl 70.0-110.0 H BLOOD UREA NITROGEN (test code = BUN) 16 mg/dl 7.0-18.0 N CREATININE (test code = CREAT) 1.12 mg/dL 0.60-1.30 N GFR NON BLACK (test code = GFRNONBLACK) 68 mL/min 70-80 L GFR BLACK (test code = GFRBLACK) 83 mL/min 85-97 L CALCIUM (test code = CA) 10.3 mg/dl 8.0-10.5 N [id number] 07:58:00* Test Item Value Reference Range Interpretation Comments LIPASE (test code = LIP) 238 Units/L 65.0-230.0 H [id number] 07:28:00* Test Item Value Reference Range Interpretation Comments GLUBED (test code = GLUBED) 132 mg/dL 70-110 H [id number] 20:59:00* Test Item Value Reference Range Interpretation Comments GLUBED (test code = GLUBED) 166 mg/dL 70-110 H [id number] 15:48:00* Test Item Value Reference Range Interpretation Comments GLUBED (test code = GLUBED) 151 mg/dL 70-110 H [id number] 11:15:00* Test Item Value Reference Range Interpretation Comments GLUBED (test code = GLUBED) 183 mg/dL 70-110 H [id number] 08:07:00* Test Item Value Reference Range Interpretation Comments GLUBED (test code = GLUBED) 134 mg/dL 70-110 H [id number] 21:01:00* Test Item Value Reference Range Interpretation Comments GLUBED (test code = GLUBED) 118 mg/dL 70-110 H [id number] 13:59:00* Test Item Value Reference Range Interpretation Comments HGBA1C% (test code = HGBA1C%) 6.8 %A1C 4.8-6.0 H ESTIMATED AVERAGE GLUCOSE (test code = EAG) 148 MG/DL BASIC METABOLIC [id number] 13:44:00* Test Item Value Reference Range Interpretation Comments SODIUM (test code = NA) 140 mmol/l 134.0-147.0 N POTASSIUM (test code = K) 3.9 mmol/L 3.6-5.2 N CHLORIDE (test code = CL) 106 mmol/l 98.0-107.0 N CARBON DIOXIDE (test code = CO2) 25.9 mmol/l 21.0-33.0 N ANION GAP (test code = GAP) 12.0 0-20 N GLUCOSE (test code = GLU) 157 mg/dl 70.0-110.0 H BLOOD UREA NITROGEN (test code = BUN) 22 mg/dl 7.0-18.0 H CREATININE (test code = CREAT) 1.50 mg/dL 0.60-1.30 H GFR NON BLACK (test code = GFRNONBLACK) 49 mL/min 70-80 L GFR BLACK (test code = GFRBLACK) 59 mL/min 85-97 L CALCIUM (test code = CA) 10.0 mg/dl 8.0-10.5 N [id number] 13:44:00* Test Item Value Reference Range Interpretation Comments LIPASE (test code = LIP) 411 Units/L 65.0-230.0 H [id number] 06:21:00* Test Item Value Reference Range Interpretation Comments GLUBED (test code = GLUBED) 121 mg/dL 70-110 H [id number] 00:41:00* Test Item Value Reference Range Interpretation Comments GLUBED (test code = GLUBED) 136 mg/dL 70-110 H [id number] 17:51:00* Test Item Value Reference Range Interpretation Comments GLUBED (test code = GLUBED) 115 mg/dL 70-110 H BASIC METABOLIC [id number] 11:55:00* Test Item Value Reference Range Interpretation Comments SODIUM (test code = NA) 136 mmol/l 134.0-147.0 N POTASSIUM (test code = K) 3.8 mmol/L 3.6-5.2 N CHLORIDE (test code = CL) 102 mmol/l 98.0-107.0 N CARBON DIOXIDE (test code = CO2) 23.7 mmol/l 21.0-33.0 N ANION GAP (test code = GAP) 14.1 0-20 N GLUCOSE (test code = GLU) 172 mg/dl 70.0-110.0 H BLOOD UREA NITROGEN (test code = BUN) 29 mg/dl 7.0-18.0 H CREATININE (test code = CREAT) 1.99 mg/dL 0.60-1.30 H GFR NON BLACK (test code = GFRNONBLACK) 35 mL/min 70-80 L GFR BLACK (test code = GFRBLACK) 42 mL/min 85-97 L CALCIUM (test code = CA) 10.0 mg/dl 8.0-10.5 N Specimen comments: Clean CatchSpecimen comments: .HEPATIC FUNCTION PANEL A 2019-04-15 11:55:00* Test Item Value Reference Range Interpretation Comments TOTAL PROTEIN (test code = PROT) 7.4 GM/DL 6.0-8.1 N ALBUMIN (test code = ALB) 3.5 gm/dL 3.2-4.7 N BILIRUBIN TOTAL (test code = BILT) 0.6 mg/dl 0.0-1.0 N BILIRUBIN DIRECT (test code = BILD) 0.1 mg/dl 0.0-0.3 N SGOT/AST (test code = AST) 20 Units/L 15.0-37.0 N SGPT/ALT (test code = ALT) 17 Units/L 12.0-78.0 N ALKALINE PHOSPHATASE TOTAL (test code = ALKP) 113 Units/L 50.0-136 .0 N Specimen comments: Clean CatchSpecimen comments: .[id number] 11:55:00* Test Item Value Reference Range Interpretation Comments LIPASE (test code = LIP) 330 Units/L 65.0-230.0 H Specimen comments: Clean CatchSpecimen comments: .B-TYPE NATRIURETIC PEPTIDE 2019-04-15 11:55:00* Test Item Value Reference Range Interpretation Comments B-TYPE NATRIURETIC PEPTIDE (test code = BNP) 113 PG/ML 5-100 H Specimen comments: Clean CatchSpecimen comments: .[id number] 11:55:00 * Test Item Value Reference Range Interpretation Comments TROPONIN-I (test code = TROPI) <0.02 NG/ML 0.00-0.06 N REFERENCE RANGE TROPONIN I HEALTHY INDIVIDUALS: <0.06 ng/mL R/O ISCHEMIA: 0.07 - 0.60 ng/mL CUT-OFF RANGE FOR AMI: 0.60 - 1.5 ng/mL Specimen comments: Clean CatchSpecimen comments: .BASIC METABOLIC PANEL 2019-04-15 11:53:00* Test Item Value Reference Range Interpretation Comments SODIUM (test code = NA) 136 mmol/l 134.0-147.0 N POTASSIUM (test code = K) 3.8 mmol/L 3.6-5.2 N CHLORIDE (test code = CL) 102 mmol/l 98.0-107.0 N CARBON DIOXIDE (test code = CO2) 23.7 mmol/l 21.0-33.0 N ANION GAP (test code = GAP) 14.1 0-20 N GLUCOSE (test code = GLU) 172 mg/dl 70.0-110.0 H BLOOD UREA NITROGEN (test code = BUN) 29 mg/dl 7.0-18.0 H CREATININE (test code = CREAT) 1.99 mg/dL 0.60-1.30 H GFR NON BLACK (test code = GFRNONBLACK) 35 mL/min 70-80 L GFR BLACK (test code = GFRBLACK) 42 mL/min 85-97 L CALCIUM (test code = CA) 10.0 mg/dl 8.0-10.5 N Specimen comments: Clean CatchSpecimen comments: .HEPATIC FUNCTION PANEL A 2019-04-15 11:53:00* Test Item Value Reference Range Interpretation Comments TOTAL PROTEIN (test code = PROT) 7.4 GM/DL 6.0-8.1 N ALBUMIN (test code = ALB) 3.5 gm/dL 3.2-4.7 N BILIRUBIN TOTAL (test code = BILT) 0.6 mg/dl 0.0-1.0 N BILIRUBIN DIRECT (test code = BILD) 0.1 mg/dl 0.0-0.3 N SGOT/AST (test code = AST) 20 Units/L 15.0-37.0 N SGPT/ALT (test code = ALT) 17 Units/L 12.0-78.0 N ALKALINE PHOSPHATASE TOTAL (test code = ALKP) 113 Units/L 50.0-136 .0 N Specimen comments: Clean CatchSpecimen comments: .[id number] 11:53:00* Test Item Value Reference Range Interpretation Comments LIPASE (test code = LIP) 330 Units/L 65.0-230.0 H Specimen comments: Clean CatchSpecimen comments: .B-TYPE NATRIURETIC PEPTIDE 2019-04-15 11:53:00* Test Item Value Reference Range Interpretation Comments B-TYPE NATRIURETIC PEPTIDE (test code = BNP) PG/ML 5-100 Specimen comments: Clean CatchSpecimen comments: .[id number] 11:53:00 * Test Item Value Reference Range Interpretation Comments TROPONIN-I (test code = TROPI) <0.02 NG/ML 0.00-0.06 N REFERENCE RANGE TROPONIN I HEALTHY INDIVIDUALS: <0.06 ng/mL R/O ISCHEMIA: 0.07 - 0.60 ng/mL CUT-OFF RANGE FOR AMI: 0.60 - 1.5 ng/mL Specimen comments: Clean CatchSpecimen comments: .PROTHROMBIN [id number] 11:44:00* Test Item Value Reference Range Interpretation Comments PROTHROMBIN TIME PATIENT (test code = PTP) 11.5 SECONDS 9.9-12.8 N INTERNATIONAL NORMAL RATIO (test code = INR) 1.0 0.89-1.14 N THE INR IS TO BE USED ONLY FOR MONITORING ORAL ANTICOAGULANTTHERAPY. THE FOLLOWING ARE SUGGESTED RANGES FROM THEAMERICAN COLLEGE OF CHEST PHYSICIANS:INDICATION INR VALUEPROPHYLAXIS OF VENOUS THROMBOSIS (ORTHOPEDIC SURGERY) 2.0 - 3.0PROPHYLAXIS OF VENOUS THROMBOSIS (OTHER THAN HIGH-RISK SURGERY) 2.0 - 3.0TREATMENT OF DEEP VEIN THROMBOSIS OR PULMONARY EMBOLISM 2.0 - 3.0PREVENTION OF SYSTEMIC EMBOLISM TISSUE HEART VALVES 2.0 - 3.0 ACUTE MYOCARDIAL INFARCTION (TO PREVENT SYSTEMIC EMBOLISM) 2.0 - 3.0 ACUTE MYOCARDIAL INFARCTION (TO PREVENT RECURRENT INFARCT) 2.5 - 3.0 VALVULAR HEART DISEASE 2.0 - 3.0 ATRIAL FIBRILATION 2.0 - 3.0BILEAFLET MECHANICAL VALVE IN AORTIC POSITION 2.0 - 3.0MECHANICAL PROSTHETIC VALVES (HIGH RISK) 2.5 - 3.5PRESENCE OF LUPUS ANTICOAGULANT OR ANTIPHOSPHOLIPID ANTIBODIES 2.5 - 3.5 Specimen comments: .THROMBOPLASTIN TIME [id number] 11:44:00* Test Item Value Reference Range Interpretation Comments THROMBOPLASTIN TIME PARTIAL (test code = PTT) 25.70 SECONDS 25.86-3 6.07 L [facility] Therapeutic Range - APTT of 55.8-85.4 secondscorrelates with plasma heparin concentration of 0.2-0.4 u/mL New range effective - 12/17/2016 Specimen comments: .BASIC METABOLIC [id number] 11:41:00* Test Item Value Reference Range Interpretation Comments SODIUM (test code = NA) 136 mmol/l 134.0-147.0 N POTASSIUM (test code = K) 3.8 mmol/L 3.6-5.2 N CHLORIDE (test code = CL) 102 mmol/l 98.0-107.0 N CARBON DIOXIDE (test code = CO2) 23.7 mmol/l 21.0-33.0 N ANION GAP (test code = GAP) 14.1 0-20 N GLUCOSE (test code = GLU) mg/dl 70.0-110.0 BLOOD UREA NITROGEN (test code = BUN) mg/dl 7.0-18.0 CREATININE (test code = CREAT) mg/dL 0.60-1.30 GFR NON BLACK (test code = GFRNONBLACK) mL/min 70-80 GFR BLACK (test code = GFRBLACK) mL/min 85-97 CALCIUM (test code = CA) mg/dl 8.0-10.5 Specimen comments: Clean CatchSpecimen comments: .HEPATIC FUNCTION PANEL A 2019-04-15 11:41:00* Test Item Value Reference Range Interpretation Comments TOTAL PROTEIN (test code = PROT) gm/dL 6.4-8.2 ALBUMIN (test code = ALB) gm/dl 3.2-4.7 BILIRUBIN TOTAL (test code = BILT) mg/dl 0.0-1.0 BILIRUBIN DIRECT (test code = BILD) mg/dl 0.0-0.3 SGOT/AST (test code = AST) Units/L 15.0-37.0 SGPT/ALT (test code = ALT) Units/L 12.0-78.0 ALKALINE PHOSPHATASE TOTAL (test code = ALKP) Units/L 50.0-136 .0 Specimen comments: Clean CatchSpecimen comments: .[id number] 11:41:00* Test Item Value Reference Range Interpretation Comments LIPASE (test code = LIP) Units/L 65.0-230.0 Specimen comments: Clean CatchSpecimen comments: .B-TYPE NATRIURETIC PEPTIDE 2019-04-15 11:41:00* Test Item Value Reference Range Interpretation Comments B-TYPE NATRIURETIC PEPTIDE (test code = BNP) PG/ML 5-100 Specimen comments: Clean CatchSpecimen comments: .[id number] 11:41:00 * Test Item Value Reference Range Interpretation Comments TROPONIN-I (test code = TROPI) NG/ML 0.00-0.06 Specimen comments: Clean CatchSpecimen comments: .TROPONIN I [id number] 11:34:00* Test Item Value Reference Range Interpretation Comments TROPONIN I RAPID (test code = TROPIRAP) 0.00 0.00-0.08 N Negative: <= 0.08 Positive: >= 0.09An elevated troponin value alone is not sufficient todiagnose a myocardial infarction. Rather, the patient'sclinical presentation (history, physical exam) and ECGshould be used in conjunction with troponin in thediagnostic evaluation of suspected myocardial infarction.A serial sampling protocol is recommended to facilitatethe identification of temporal changes in troponin levelscharacteristic of [place]. CBC W/AUTO [id number] 11:30:00* Test Item Value Reference Range Interpretation Comments WHITE BLOOD CELL (test code = WBC) 9.4 K/mm3 4.5-11.0 N RED BLOOD CELL (test code = RBC) 5.04 M/mm3 4.40-5.90 N HEMOGLOBIN (test code = HGB) 12.7 gm/dL 13.0-17.0 L HEMATOCRIT (test code = HCT) 40.4 % 36.0-48.0 N MEAN CELL VOLUME (test code = MCV) 80.2 UM3 80.0-94.0 N MEAN CELL HGB (test code = MCH) 25.2 UUG 25.5-32.5 L MEAN CELL HGB CONCETRATION (test code = MCHC) 31.4 gm/dL 29.0-35. 5 N RED CELL DISTRIBUTION WIDTH (test code = RDW) 16.6 % 11.5-15. 0 H RED CELL DISTRIBUTION WIDTH SD (test code = RDW-SD) 46.9 fL 34 .8-50.2 N PLATELET COUNT (test code = PLT) 250 K/mm3 150-400 N MEAN PLATELET VOLUME (test code = MPV) 10.5 fl 7.4-10.4 H NEUTROPHIL % (test code = NT%) 69.3 % 49.0-76.0 N IMMATURE GRANULOCYTE % (test code = IG%) 0.3 % 0.0-0.4 N LYMPHOCYTE % (test code = LY%) 23.4 % 23.0-38.0 N MONOCYTE % (test code = MO%) 5.0 % 1.0-10.0 N EOSINOPHIL % (test code = EO%) 1.5 % 1.0-5.0 N BASOPHIL % (test code = BA%) 0.5 % 0.0-1.0 N NEUTROPHIL # (test code = NT#) 6.5 K/mm3 2.4-6.3 H IMMATURE GRANULOCYTE # (test code = IG#) 0.03 x10 3/uL 0.00-0.07 N LYMPHOCYTE # (test code = LY#) 2.2 K/mm3 1.2-4.0 N MONOCYTE # (test code = MO#) 0.5 K/mm3 0.0-0.6 N EOSINOPHIL # (test code = EO#) 0.1 K/MM3 0.0-0.7 N BASOPHIL # (test code = BA#) 0.1 K/mm3 0.0-0.2 N - XR CHEST 1 [id number] 11:19:00 FAX: Angely Kapoor MD [phone] [place]: St: PRE FAX: Liz Yepez MD [phone] Name: ADRIAN MCKEE [facility] : 1945 Age/S: 74/M [address] [facility]: [id number] Loc: [place], [place] Phys: [place] [id number] Acct: [id number] Dis Date: Status: PRE ER PHONE #: [phone] Exam Date: 04/15/2019 1111 FAX #: [phone] Reason: near syncope EXAMS: CPT CODE: [id number] XR CHEST 1 V 75044 EXAM: - XR CHEST 1 V Location code:C3 HISTORY: near syncope COMPARISON: 07/01/2018 FINDINGS: Single AP view of the chest is provided. Calcified pleural plaques are again seen. Heart size and vascularity are within normal limits. The lungs are clear of focal consolidation. No effusion, pneumothorax, or acute osseous abnormality. IMPRESSION: 1. No radiographic evidence of acute cardiopulmonary process. at 1119 Reported and signed by: Mehul Abrams M.D. CC: Angely Heredia M.D.; Liz Yepez MD Technologist: [facility] Date/Time/By: 04/15/2019 (4301) : By: sylvie BATISTACB5 PAGE 1 Signed Report FAX: Angely Kapoor MD [phone] [place]: St: PRE FAX: Liz Yepez MD [phone] Name: ADRIAN MCKEE [facility] : 1945 Age/S: 74/M [address] [facility] Unit #: [id number] Loc: [place], [place] Phys: Liz Yepez MD 77 [id number] Acct: [id number] Dis Date: Statu s: PRE ER PHONE #: [phone] Exam Date: 04/15/2019 1111 FAX #: [phone] Reason: near sy ncope EXAMS: CPT CODE: [id number] XR CHEST 1 V 32611 <Continued> Orig Print D/T: S: 04/15/2019 (1125) PAGE 2 Signed Report U/S, ABDOMINAL, LIMITED 2018-12-13 15:51:00Reason for Exam:->Z00.6FINAL REPORT HISTORY : Z00.6 COMPARISON: None. COMMENT :Limited ultrasound examination of the abdomen was performed with attention to the right upper quadrant. The pancreas is not visualized secondary to prominent adjacent bowel gas. The liver is normal in size measuring 16.8 cm in length. The hepatic parenchyma is homogeneous. No focal hepatic abnormalities identified. The main portal vein is patent with diameters 0.9 cm, within normal limits. Gallbladder surgically absent. There is no intra or extrahepatic biliary ductal dilatation. The common bile duct measures 7 mm. The right kidney measures slightly decreased in size measuring 7.5 x 5.4 x 3.6 cm. Cortical thickness and echogenicity are within normal limits. There is no evidence for solid renal size, hydronephrosis, or shadowing calculi within the right kidney. The IVC is not well visualized secondary to prominent midline bowel gas. The visualized portions of the aorta are normal in caliber. There is no ascites or pleural fluid visualized. IMPRE SSION : Unremarkable limited abdominal ultrasound examination, noting midline st ructures are suboptimally evaluated secondary to overlying bowel gas. Signed: Pramod Maher MDReport Verified Date/Time: 12/13/2018 15:51:20 Reading Location: [address] Ultrasound Reading Room
[2020-07-23 21:03] LABS: ALBUMIN 3.2 g/dL (3.5-5.0); ALBUMIN/GLOBULIN RATIO 0.8 (0.8-2.0); ANION GAP 13.4 mmol/L (8-16); CALCIUM 10.7 mg/dL (8.4-10.2); CREATININE, SERUM 1.56 mg/dL (0.72-1.25); POTASSIUM 4.4 mmol/L (3.5-5.1)
[2020-07-23 21:09] LABS: CREATINE KINASE MB 0.4 ng/mL (0-5.0)
--- NOTE | 2020-07-23 21:35 | Diagnostic Imaging Report ---
EXAMINATION: Head CT HISTORY: 75-year-old male with pain and memory loss COMPARISON: None. TECHNIQUE: Helical axial images of the head were obtained. Reformatted coronal and sagittal images from the axial data. Dose modulation, iterative reconstruction, and/or weight based adjustment of the mA/kV was utilized to reduce the radiation dose to as low as reasonably achievable. FINDINGS: Parenchyma: 1. Scattered ethmoid confluent periventricular and partida radiata matter hypodensities, most likely nonspecific chronic microvascular ischemic changes. 2. No mass or hemorrhage. No CT evidence of acute territorial vascular insult. Extra-axial spaces:No abnormal density. No extra-axial fluid collections Brain volume: Mild generalized brain volume loss Ventricles: No hydrocephalus or displacement. Arteries: No density suggestive of thrombus. Dural sinuses: No abnormal density. Foramen magnum: No mass, Chiari malformation, or basilar invagination. Sella: No obvious mass. Paranasal/mastoid sinuses: Imaged portions unremarkable. Skull/Scalp: No lytic or blastic lesions. No fractures. IMPRESSION: 1. No acute intracranial abnormalities. 2. Moderate chronic microvascular ischemic changes. 3. Mild generalized parenchymal volume loss. Signed by: Dr. Violeta Blackman M.D. on 07/23/2020 9:32 PM
--- NOTE | 2020-07-23 22:00 | Diagnostic Imaging Report ---
EXAMINATION: CHEST 2 VIEWS INDICATION: Hurts all over COMPARISON: Reports from chest x-ray and abdominal CT on 10/12/2010 FINDINGS: TUBES and LINES: None. LUNGS: Low lung volumes. Lungs are clear. No consolidations. PLEURA: Calcifications project in the left lateral hemithorax, can be pleural plaques as described on chest x-ray and abdominal CT from 10/12/2010. HEART AND MEDIASTINUM: The cardiomediastinal silhouette is unremarkable. BONES AND SOFT TISSUES: No acute osseous lesion. Soft tissues are unremarkable. UPPER ABDOMEN: No free air under the diaphragm. IMPRESSION: Calcifications project in the left lateral hemithorax, can be pleural plaques from prior is best as exposure, as described on chest x-ray and abdominal CT from 10/12/2010. A nonemergent chest CT can further characterize. Signed by: Zeke Francis DO on 07/23/2020 9:56 PM
[2020-07-23 22:38] LABS: BILIRUBIN,URINE NEGATIVE (NEGATIVE); CLARITY,URINE CLEAR (CLEAR); COLOR,URINE YELLOW (YELLOW); KETONES,URINE NEGATIVE (NEGATIVE); LEUKOCYTE ESTERASE ,URINE NEGATIVE (NEGATIVE); NITRITE,URINE NEGATIVE (NEGATIVE); PROTEIN,URINE DIPSTICK >=300 (NEGATIVE); URINE UROBILINOGEN 1 mg/dL (0.2 - 1)
[2020-07-23] MEDS ORDERED: METHYLPREDNISOLONE SOD SUCC 125 MG/2ML VIAL IV ONE (22:45)
[2020-07-23 22:48] VITALS: BP 141/100
[2020-07-23 22:54] LABS: BACTERIA,URINE MODERATE /HPF; EPITHELIAL CELLS,URINE FEW /LPF
[2020-07-23 22:55] LABS: HYALINE CASTS 0-1 (0-1)
== END 2020-07-24 00:34 | disposition home or self-care (01) ==
LOC: ER 20:48
DX: R41.0 Disorientation, unspecified (principal); G89.29 Other chronic pain; N39.0 Urinary tract infection, site not specified
CPT/HCPCS: 36415; 70450; 71046; 80053; 81001; 82550; 82553; 83690; 83880; 84484; 85025; 93005; 99284; J2930

== ENCOUNTER 2020-08-03 08:23 | Observation (INO) | payer MEDICARE, OTHER ==
[2020-07-30 11:06] LABS: BASOPHILS # (AUTO) 0.1 (0.0-0.1); BASOPHILS % 0.4 % (0.0-1.0); EOSINOPHILS # (AUTO) 0.2 (0.0-0.4); EOSINOPHILS % 1.1 % (0.0-6.0); HEMATOCRIT 46.3 % (38.2-49.6); HEMOGLOBIN 14.6 g/dL (14.0-18.0); LYMPHOCYTES # (AUTO) 3.1 (1.0-3.2); MEAN CORPUSCULAR HEMOGLOBIN 26.3 pg (28-32); MEAN CORPUSCULAR HGB CONC 31.5 g/dL (31-35); MEAN CORPUSCULAR VOLUME 83.4 fL (81-99); MONOCYTES # (AUTO) 0.6 (0.2-0.8); MONOCYTES % 4.5 % (4.4-11.3); NEUTROPHILS % 71.5 % (38.7-80.0); PLATELET COUNT 345 x10e3/uL (140-360); RED BLOOD COUNT 5.55 x10e6/uL (4.3-5.7)
[2020-07-30 11:30] LABS: ANION GAP 16.1 mmol/L (8-16); CALCIUM 9.8 mg/dL (8.4-10.2); CREATININE, SERUM 2.33 mg/dL (0.72-1.25); POTASSIUM 4.1 mmol/L (3.5-5.1)
[~2020-08-03] VITALS: Ht 170.2 cm; Wt 104.8 kg
[~2020-08-03 08:23] MED LIST changes: +CEPHALEXIN500 MG PO; +FLUOXETINE HCL10 MG PO; +ROPIVACAINE 246.25 MG, EPINEPHRINE HCL 1:1000 1ML 0.5 MG, CLONIDINE HCL 0.08 MG, KETORO... INJ ONE; +SODIUM CHLORIDE 0.9% 500ML 500 ML ONE; +TRANEXAMIC ACID 1,000 MG/10 ML ML ONE; +TYLENOL 4 PO; +VANCOMYCIN HCL 1,000 MG ONE
[2020-08-03] MEDS ORDERED: CELECOXIB 200 MG CAP ONE (08:43)
[2020-08-03] MEDS ORDERED: CEFAZOLIN SOD 1 GM/NS 50ML 100 ML IV ONE (08:44)
[2020-08-03] MEDS ORDERED: GABAPENTIN 300 MG CAP ONE (08:44)
[2020-08-03] MEDS ORDERED: DEXAMETHASONE SOD PHOS 10 MG/1 ML VIAL ONE (08:44)
[2020-08-03] MEDS ORDERED: ACETAMINOPHEN 650 MG SUPP PR PRN (11:30)
[2020-08-03] MEDS ORDERED: DOCUSATE SODIUM 100 MG CAP PO PRN (11:30)
[2020-08-03] MEDS ORDERED: KETOROLAC TROMETHAMINE 30 MG/ML VIAL IV PRN (11:30)
[2020-08-03] MEDS ORDERED: ONDANSETRON HCL INJ 2MG/ML 2ML 2 MG/ML VIAL IV PRN (11:30)
[2020-08-03] MEDS ORDERED: HYDROCODONE/APAP 7.5MG-325MG 1 EA TAB PO PRN (11:30)
[2020-08-03] MEDS ORDERED: DIPHENHYDRAMINE HCL INJ 50 MG/ML VIAL IV PRN (11:30)
--- OUTSIDE RECORDS SUMMARY | 2020-08-03 11:52 | XMS REPORT | Continuity of Care Document ---
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, angina presence unspecified [...] [facility] PAIN IN RIGHT KNEE Active [facility] Medications Medication Details Route Status Patient Instructions [...] Active 100 MG Orally Once a day [facility] Metformin HCl 1 tablet with [...] DC Date Status Source [place] BAUTISTA NP [id number] 09/01/2015 09/01/2015 [facility] [place] BA[place] NP [id number] 09/01/2015 09/01/2015 [facility] [place] NP [id number] 09/01/2015 09/01/2015 [facility] [place] NP [id number] 09/01/2015 09/01/2015 [facility] [place] NP [id number] 09/01/2015 09/01/2015 [facility] [place] NP [id number] 09/01/2015 09/01/2015 [facility] [place] NP [id number] 09/01/2015 09/01/2015 [facility] [place] NP [id number] 09/01/2015 09/01/2015 [facility] [place] QUICKT [id number] 09/02/20 15 09/02/2015 [facility] [place] BAUT[place] NST [id number] 09/02/20 15 09/02/2015 [facility] [place] QUICKT [id number] 09/02/20 15 09/02/2015 [facility] QUICKT [id number] 09/02/20 15 09/02/2015 [facility] [place] QUICKT [id number] 09/02/20 15 09/02/2015 [facility] [place] QUICKT [id number] 09/02/20 15 09/02/2015 [facility] [place] QUICKT [id number] 09/02/20 15 09/02/2015 [facility] [place] ECHO [id number] 09/02/20 15 09/02/2015 [facility] [place] MIRANDA [id number] 09/02/20 15 09/02/2015 [facility] [place] ECHO [id number] 09/02/20 15 09/02/2015 [facility] [place] ECHO [id number] 09/02/20 15 09/02/2015 [facility] [place] ECHO [id number] 09/02/20 15 09/02/2015 [facility] [place] ECHO [id number] 09/02/20 15 09/02/2015 [facility] [place] ECHO [id number] 09/02/20 15 09/02/2015 [facility] [place] ECHO [id number] 09/02/20 15 09/02/2015 [facility] [place] MIRANDA [id number] 09/02/20 15 09/02/2015 [facility] [place] MIRANDA [id number] 09/02/20 15 09/02/2015 [facility] [place] [place] MIRANDA [id number] 09/02/20 15 09/02/2015 [facility] [place] IMRANDA [id number] 09/02/20 15 09/02/2015 [facility] [place] [place] MIRANDA [id number] 09/02/20 15 09/02/2015 [facility] [place] MIRANDA [id number] 09/02/20 15 09/02/2015 [facility] BAUITSTA NST, ECHO, MIRANDA [id number] 09/08/20 15 09/08/2015 [facility] BA[place] NST, ECHO, MIRANDA [id number] 09/08/20 15 09/08/2015 [facility] [place] NST, ECHO, MIRANDA [id number] 09/08/20 15 09/08/2015 [facility] BA[place] NST, ECHO, MIRANDA [id number] 09/08/20 15 09/08/2015 [facility] [place] BA[place] 6 months [id number] 03/08/20 16 03/08/2016 [facility] [place] 6 months [id number] 03/08/20 16 03/08/2016 [facility] [place] BA[place] 6 months [id number] 03/08/20 16 03/08/2016 [facility] [place] ECHO [id number] 09/07/20 16 09/07/2016 [facility] [place] ECHO [id number] 09/07/20 16 09/07/2016 [facility] [place] F/U ECHO [id number] 09/19/20 16 09/19/2016 [facility] Outpatient [id number] Yovani Heredia 02/08/2017 02/09/2017 [facility] Procedures No Data Provided for This Section Assessment and Plan No Data Provided for This Section Plan of Care No Data Provided for This Section Social History Social History Date Source No data available for this section 02/09/2017 [facility] Social History ElementQualifiersDate Rep orted Caffeine: . [...]
--- OUTSIDE RECORDS SUMMARY | 2020-08-03 11:52 | XMS REPORT | Clinical Summary ---
Author Author [facility] Organization [facility] Address Unknown Phone Unavailable Care Team Providers Care Box Sealing Machine Catcher Name Role Phone System, Provider Not In DIRECTOR MICROBIOLOGY-C PCP Unavailabl e Allergies No Known Active [...] VACCINE 05/22/2020 09/19/2016 Results Not on fileafter 08/03/2019 Insurance Type Payer Benefit Subscriber ID Effective Phone Address Plan / Dates Group Medicare MEDICARE MEDICARE [id number] 2011-P MICHELLE, PART A AND resent [place] B PPO [facility] [id number] [id number] BENEFIT resent PLAN [id number] [place]) [place] [phone] Advance Directives For more information, please contact: [phone] Patient Cargo Inspector Explanation Type Date Recorded Advance Directives, 03/01/2018 8:00 AM Living Will and Medical Power of Quilt Stuffer
--- OUTSIDE RECORDS SUMMARY | 2020-08-03 11:52 | XMS REPORT | Clinical Summary ---
Author Author [facility] Address Unknown Phone Unavailable Care Team Providers Care Furniture Sales Associate Name Role Phone Pcp, No PCP Unavailable Allergies Not on File Medications Not on file Active Problems Not on file Social History Date Tobacco Use Types Packs/Day Years Used Never Assessed Sex Assigned at Date Recorded Not on file Last Filed Vital Signs Not on file Plan of Treatment Not on file Results Not on fileafter 08/03/2019
--- OUTSIDE RECORDS SUMMARY | 2020-08-03 11:52 | XMS REPORT | Continuity of Care Document ---
Author Author [facility] Organization [facility] Address [address] [place] [address] Phone Unavailable Care Team Providers Care Plug Shaper Hand Name Role Phone NONSTAFF PCP Unavailable ADRIAN DORMAN Attphys Unavailable MEHUL CHOI P.A. Attphys Unavailable Xiao Heredia Attphys Payers Payer Name Policy Type Policy Number Effective Date Expiration Date S lisa Medicare A & B [id number] 2011 00:00:00 [facility] Umr Hmo [id number] 2009 00:00:00 [facility] Cdc Review [id number] [facility] Problems Condition Name Condition Details Condition Category Status Onset Date Resolution Date Last Treatment Date Treating Clinician Comments Source RIGHT KNEE OSTEOARTHRITIS RIGH T KNEE OSTEOARTHRITIS Active 07/02/2020 Sary Yuen Diagnosis Active 2020-07-02 00:00: 00 2020-07-21 10:44:00 Sary Yuen E21.3 E21. 3 Active 02/06/2017 [facility] Active 2017-02-06 00:00:00 2017-02-08 09:59:00 Sary Yuen History of Arthritis History of Arthritis Problem Resolved [facility] History of Asthma History of Asthma Problem Resolved [facility] History of Diabetes History of Diabetes Problem Resolved [facility] History of Gallbladder disease History of Gallbladder disease Probl em Resolved [facility] History of Gastric ulcer History of Gastric ulcer Problem Resolved [facility] History of Hay fever History of Hay fever Problem Resolved [facility] History of Heart disease History of Heart disease Problem Resolved [facility] History of Hernia History of Hernia Problem Resolved [facility] History of High blood pressure History of High blood pressure Probl em Resolved [facility] History of Lung disease History of Lung disease Problem Resolved [facility] History of Staph infection History of Staph infection Problem Resolved [facility] Confusion Problem Active [facility] Chronic pain Problem Active [facility] Urinary tract infection Problem Active [facility] Congestive heart failure with LV diastolic dysfunction , NYHA class 1 Congestive heart failure with LV diastolic dysfunction, NYHA class 1 Active Problem 11/14/2018 Cardiovascular Problem Active 2018-11-14 03:54:04 Sary Yuen [...] 09/18/2018 [facility] Cardiovascular Diagnosis Active 2018-09-18 03:45:56 De morial [facility] Dyspnea, unspecified Dysp za, unspecified [...] [facility] Cardiovascular Problem Active 2018-11-14 03:54:04 Sary Wilfrid Systolic congestive heart failure, unspecified chronic ity Systolic congestive heart failure, unspecified chronicity Active Diagnosis 01/24/2018 [facility] Cardiovascular Diagnosis Active 2018-01-24 02:46:45 Sary Yuen 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 N.K.D.A. Active Info Not Available 2018-09-16 00:00:00 Sary Yuen No Known Allergies DA Active U 2017-03-20 00:00:00 [facility] Social History Social Habit Start Date Stop Date Quantity Comments Source Sex Assigned At [facility] Tobacco use and exposure 2018-03-01 00:00:00 2018-03-01 00:00:00 Jill [facility] Alcohol intake 2018-03-01 00:00:00 2018-03-01 00:00:00 Current non-drinker of alcohol (finding) Miguel Angel [facility] Social History 2017-02-09 04:59:00 2017-02-09 04:59:00 [facility] Caffeine: 2016-09-19 00:00:00 2016-09-19 00:00:00 [facility] Smoking Status Start Date Stop Date Source Former smoker 2018-03-01 00:00:00 2018-03-01 00:00:00 [facility] Angel [facility] Medications Ordered Medication Name Filled Medication Name Start Date Stop Da te Current Medication? Ordering Clinician Indication Dosage Frequency Signature (SIG) Comments Components Source Viagra 2018-10-04 00:00:00 Yes Mohamed Sekou 1 tablet as needed [facility] Sildenafil Citrate 2018-09-18 03:45:56 Yes Mohamed Soraya by 1 tablet as needed [facility] Omeprazole 2018-09-18 03:45:56 Yes Mohamed Sekou 1 capsule [facility] Losartan Potassium 2018-09-18 03:45:56 Yes Mohamed Sekou 1 tablet [facility] Alprazolam 2018-09-18 03:45:56 Yes Mohamed Sekou 1 tablet [facility] Cetirizine HCl 2018-09-18 03:45:56 Yes Mohamed Sekou 1 tablet as needed [facility] Metformin HCl 2018-09-18 03:45:56 Yes Mohamed Sekou 0.5 tablet with meals [facility] Aspirin Adult Low Dose 2018-09-18 03:45:56 Yes Mohamed S halaby 1 tablet [facility] Isosorbide Dinitrate 2018-09-18 03:45:56 Yes Mohamed Sekou 1 tablet [facility] Rivaroxaban 2018-09-18 03:45:56 Yes Mohamed Sekou 1 tablet with food [facility] Furosemide 2018-09-18 03:45:56 Yes Mohamed Sekou not defined [facility] Simvastatin 2018-09-18 03:45:56 Yes Mohamed Sekou 1 tablet in the evening [facility] Fluoxetine HCl 2018-09-18 03:45:56 Yes Mohamed Sekou 1 capsule in the morning [facility] Metformin HCl 2018-08-28 03:45:55 Yes Mohamed Sekou 0.5 tablet with meals [facility] Fluoxetine HCl 2018-08-28 03:45:55 Yes Mohamed Sekou 1 capsule in the [facility] Simvastatin 2018-08-21 02:46:45 Yes Mohamed Sekou 1 tablet in the evening [facility] Fluoxetine HCl 2018-08-21 02:46:45 Yes Mohamed Sekou 1 capsule in the morning [facility] Folbee 2018-04-12 02:47:39 Yes Mohamed Sekou 1 tablet [facility] Zaroxolyn 2018-01-22 00:00:00 Yes Mohamed Sekou 1 tablet [facility] Potassium Chloride 2018-01-08 00:00:00 Yes Mohamed Soraya by 1 tablet with food [facility] Lasix 2018-01-08 00:00:00 Yes Mohamed Sekou 1 t ablet [facility] Potassium Chloride 2018-01-08 00:00:00 Yes Mohamed Soraya by 1 tablet with food [facility] Xarelto 2017-12-18 00:00:00 Yes Mohamed Sekou 1 tablet with food [facility] Labetalol HCl 2017-10-25 00:00:00 Yes Mohamed Sekou 1 tablet [facility] NIFEdipine ER 2017-10-19 03:45:59 Yes Mohamed Sekou 1 tablet [facility] Metformin HCl 2017-10-18 03:46:18 Yes Mohamed Sekou 1 tablet with meals [facility] Omeprazole 2017-04-03 02:45:43 Yes Mohamed Sekou 1 capsule [facility] Sildenafil Citrate 2017-04-03 02:45:43 Yes Mohamed Soraya by 1 tablet as needed [facility] Metformin HCl 2017-04-03 02:45:43 Yes Mohamed Sekou 1 tablet with meals [facility] Alprazolam 2017-04-03 02:45:43 Yes Mohamed Sekou 1 tablet [facility] Simvastatin 2017-04-03 02:45:43 Yes Mohamed Skeou 1 tablet in the evening [facility] Losartan Potassium 2017-04-03 02:45:43 Yes Mohamed Sekou 1 tablet [facility] Folbee 2017-04-03 02:45:43 Yes Mohamed Sekou 1 tablet [facility] Fluoxetine HCl 2017-04-03 02:45:43 Yes Mohamed Sekou 1 capsule in the morning [facility] Cetirizine HCl 2017-04-03 02:45:43 Yes Mohamed Sekou 1 tablet as needed [facility] NIFEdipine ER 2017-04-03 02:45:43 Yes Gene Sekou 1 tablet [facility] Aspirin 2015-09-10 03:54:40 Yes Gene Sekou 1 tablet [facility] Metformin HCl 2015-09-02 03:51:09 Yes Gene Sekou 1 tablet with meals [facility] Alogliptin Benzoate (Alogliptin) 12.5 Mg TABLET Alogli ptin Benzoate (Alogliptin) 12.5 Mg TABLET Yes 12.5 Daily [facility] Alprazolam Alprazolam Yes .5 As Needed [facility] Amlodipine Besylate Amlodipine Besylate Yes 10 Daily [facility] Calcitriol Calcitriol Yes .25 Daily [facility] Cetirizine Hcl Cetirizine Hcl Yes 10 Daily [facility] Cyanocobalamin (Vitamin B-12) 1,000 Mcg TAB Cyanocobal lamar (Vitamin B-12) 1,000 Mcg TAB Yes 500 Daily [facility] Furosemide Furosemide Yes 40 Daily [facility] Losartan Potassium Losartan Potassium Yes 50 Tw ice A Day [facility] Metformin Hcl Metformin Hcl Yes 250 Twice A Day [facility] Metoprolol Succinate Metoprolol Succinate Yes 25 Daily [facility] Multivitamin (Multivitamins) 1 Each CAPSULE Multivitam in (Multivitamins) 1 Each CAPSULE Yes 1 Daily [facility] Omeprazole Magnesium (Prilosec) 10 Mg SUSPDR.PKT Omepr azole Magnesium (Prilosec) 10 Mg SUSPDR.PKT Yes 20 Daily [facility] Paroxetine Hcl Paroxetine Hcl Yes 60 Daily [facility] Rivaroxaban (Xarelto) 10 Mg TABLET Rivaroxaban (Xarelto) 10 Mg TABLET Yes 15 Twice Daily With Meals [facility] Simvastatin Simvastatin Yes 10 Today At 9:00PM [facility] Vital Signs Vital Name Observation Time Observation Value Comments Source Body Temperature 2020-07-23 22:48:00 97.8 [degF] [facility] Weight 2020-07-23 20:37:00 260 [lb_av] [facility] BMI (Body Mass Index) 2020-07-23 20:37:00 40.7 kg/m2 [facility] Body height 2020-07-01 18:00:00 69 [in_us] [facility] Weight 2020-07-01 18:00:00 246 [lb_av] [facility] Body mass index (BMI) [Ratio] 2020-07-01 18:00:00 36.33 kg/m2 [facility] Weight 2018-09-16 15:00:00 [facility] Heart Rate 2018-09-16 15:00:00 [facility] Diastolic (mm Hg) 2018-09-16 15:00:00 [facility] [place] Systolic (mm Hg) 2018-09-16 15:00:00 Manuel [facility] Weight 2018-08-26 19:45:00 [facility] Heart Rate 2018-08-26 19:45:00 [facility] [place] Diastolic (mm Hg) 2018-08-26 19:45:00 [facility] [place] Systolic (mm Hg) 2018-08-26 19:45:00 Manuel rial [facility] Weight 2018-08-07 16:15:00 [facility] Heart Rate 2018-08-07 16:15:00 [facility] Diastolic (mm Hg) 2018-08-07 16:15:00 Mem [facility] Systolic (mm Hg) 2018-08-07 16:15:00 Manuel rial [facility] Weight 2018-04-10 18:15:00 [facility] Heart Rate 2018-04-10 18:15:00 [facility] Diastolic (mm Hg) 2018-04-10 18:15:00 Mem [facility] Systolic (mm Hg) 2018-04-10 18:15:00 Manuel rial [place] Weight 2018-01-22 19:45:00 [facility] [place] Heart Rate 2018-01-22 19:45:00 [facility] [place] Diastolic (mm Hg) 2018-01-22 19:45:00 Mem [facility] [place] Systolic (mm Hg) 2018-01-22 19:45:00 Manuel rial [facility] Weight 2018-01-08 18:15:00 [facility] [place] Heart Rate 2018-01-08 18:15:00 [facility] Diastolic (mm Hg) 2018-01-08 18:15:00 Mem [facility] Systolic (mm Hg) 2018-01-08 18:15:00 Manuel jamil [place] Weight 2017-12-18 22:15:00 [facility] [place] Heart Rate 2017-12-18 22:15:00 [facility] [place] Diastolic (mm Hg) 2017-12-18 22:15:00 Mem o[facility] Systolic (mm Hg) 2017-12-18 22:15:00 Manuel navdeepl [place] Weight 2017-11-22 15:30:00 [facility] [place] Heart Rate 2017-11-22 15:30:00 [facility] [place] Diastolic (mm Hg) 2017-11-22 15:30:00 Mem [facility] [place] Systolic (mm Hg) 2017-11-22 15:30:00 Manuel jamil [place] Weight 2017-10-17 17:00:00 [facility] [place] Heart Rate 2017-10-17 17:00:00 [facility] [place] Diastolic (mm Hg) 2017-10-17 17:00:00 Mem o[facility] Systolic (mm Hg) 2017-10-17 17:00:00 Manuel negron [facility] Weight 2017-10-16 15:45:00 [facility] Heart Rate 2017-10-16 15:45:00 [facility] Diastolic (mm Hg) 2017-10-16 15:45:00 Mem [facility] Systolic (mm Hg) 2017-10-16 15:45:00 Manuel jamil [facility] Weight 2017-03-29 16:45:00 [facility] [place] Heart Rate 2017-03-29 16:45:00 [facility] [place] Diastolic (mm Hg) 2017-03-29 16:45:00 Mem [facility] Systolic (mm Hg) 2017-03-29 16:45:00 Manuel jamil [place] Weight 2017-03-29 15:45:00 [facility] Heart Rate 2017-03-29 15:45:00 [facility] Diastolic (mm Hg) 2017-03-29 15:45:00 [facility] [place] Systolic (mm Hg) 2017-03-29 15:45:00 Manuel jamil [facility] Weight 2016-09-19 20:00:00 [facility] [place] Heart Rate 2016-09-19 20:00:00 [facility] [place] Diastolic (mm Hg) 2016-09-19 20:00:00 Mem [facility] Systolic (mm Hg) 2016-09-19 20:00:00 Manuel rial [facility] Weight 2016-03-08 18:15:00 [facility] [place] Heart Rate 2016-03-08 18:15:00 [facility] [place] Diastolic (mm Hg) 2016-03-08 18:15:00 [facility] [place] Systolic (mm Hg) 2016-03-08 18:15:00 Manuel rial [facility] Weight 2015-09-08 19:00:00 [facility] Heart Rate 2015-09-08 19:00:00 [facility] [place] Diastolic (mm Hg) 2015-09-08 19:00:00 Mem [facility] Systolic (mm Hg) 2015-09-08 19:00:00 Manuel rial [facility] Weight 2015-09-01 19:00:00 [facility] Heart Rate 2015-09-01 19:00:00 [facility] Diastolic (mm Hg) 2015-09-01 19:00:00 [facility] [place] Systolic (mm Hg) 2015-09-01 19:00:00 Manuel rial [place] Procedures Procedure Date / Time Performed Performing Clinician [facility] e Computed tomography of brain without radiopaque contrast 2020-07 00:00:00 [facility] X-ray of chest, two views 2020-07-23 00:00:00 CH I [facility] EGD BIOPSY SINGLE/MULTIPLE 2020-04-14 00:00:00 C HI [facility] COLONOSCOPY AND BIOPSY 2020-04-14 00:00:00 [facility] S [facility] COLONOSCOPY W/LESION REMOVAL 2020-04-14 00:00:00 [facility] History of Hernia repair [facility] History of Gallbladder surgery [facility] Plan of Care Planned Activity Planned Date Details Comments Source Future Scheduled Test 2020-05-22 00:00:00 INFLUENZA VACCINE [code = INFLUENZA VACCINE] Miguel Angel [facility] Future Scheduled Test 2011 00:00:00 65+ PNEUMOCOCCAL V ACCINE (1 of 1 - PPSV23) [code = 65+ PNEUMOCOCCAL VACCINE (1 of 1 - PPSV23)] [facility] Scheduled Test 1996 00:00:00 COLONOSCOPY SCREEN ING [code = COLONOSCOPY SCREENING] [facility] Scheduled Test 1996 00:00:00 SHINGLES VACCINES (#1) [code = SHINGLES VACCINES (#1)] [facility] Scheduled Test 1956 00:00:00 DIABETIC FOOT EXAM [code = DIABETIC FOOT EXAM] [facility] Scheduled Test 1956 00:00:00 URINE MICROALBUMIN [code = URINE MICROALBUMIN] [facility] Scheduled Test 1946 00:00:00 DIABETIC RETINAL E YE EXAM [code = DIABETIC RETINAL EYE EXAM] [facility] Instructions Chronic Pain [facility] Instructions Confusion [facility] Encounters Start Date/Time End Date/Time Encounter Type Admission Type Attendi [facility] Care Department Encounter ID Source 2020-07-23 20:48:00 2020-07-24 00:34:00 Departed Emergency Room 1 ADRIAN DORMAN [facility] [id number] [facility] 2020-07-06 13:00:00 2020-07-06 13:00:00 Outpatient [id number] 2020-07-01 13:00:00 2020-07-01 13:00:00 Appointment; VINITA CHOI P.A. HAWKS, CHRISTOPHER, P.A. [facility] Orthopedics - [facility] enter [id number] [facility] 2020-04-14 08:05:00 2020-04-14 08:05:00 Registered Surgical Day Care [facility] [id number] [facility] 2018-10-11 11:45:00 2018-10-11 11:45:00 Outpatient Gene Melendrez [id number] [facility] 2018-10-04 10:11:00 2018-10-04 10:11:00 Outpatient Gene Melendrez [id number] [facility] 2018-09-27 16:15:00 2018-09-27 16:15:00 Outpatient [place] [id number] [facility] 2018-09-16 09:00:00 2018-09-16 09:00:00 Outpatient Gene [place] [id number] [facility] 2018-08-26 13:45:00 2018-08-26 13:45:00 Outpatient Gene [place]app [place] [id number] [facility] 2018-08-16 13:00:00 2018-08-16 13:00:00 Outpatient Gene Sapp Md [place] Pa [id number] [facility] 2018-08-07 11:15:00 2018-08-07 11:15:00 Outpatient Gene Sapp [place] [id number] [facility] 2018-08-07 11:15:00 2018-08-07 11:15:00 Outpatient Gene Sapp Md Pa Gene Sapp Md Pa [id number] [facility] 2018-04-10 13:15:00 2018-04-10 13:15:00 Outpatient Gene [place] [id number] [facility] 2018-04-10 13:00:00 2018-04-10 13:00:00 Outpatient Gene [place] [id number] [facility] 2018-01-24 09:06:00 2018-01-24 09:06:00 Outpatient Gene [place]app [place] Pa [id number] [facility] 2018-01-23 14:46:00 2018-01-23 14:46:00 Outpatient [place] Pa [id number] [facility] 2018-01-23 14:45:00 2018-01-23 14:45:00 Out[place] [id number] [facility] 2018-01-22 14:45:00 2018-01-22 14:45:00 Outpatient Gene [place] [id number] [facility] 2018-01-22 14:30:00 2018-01-22 14:30:00 Outpatient Gene Sapp Md [place] Pa [id number] [facility] 2018-01-18 08:29:00 2018-01-18 08:29:00 Outpatient Gene Sapp [place] Pa [id number] [facility] 2018-01-08 13:15:00 2018-01-08 13:15:00 Outpatient Gene [place]app [place] Pa [id number] [facility] 2017-12-18 16:15:00 2017-12-18 16:15:00 Outpatient Gene [place]app [place] Pa [id number] [facility] 2017-11-22 09:30:00 2017-11-22 09:30:00 Outpatient Gene aSpp [place] [id number] [facility] 2017-11-07 15:40:00 2017-11-07 15:40:00 Outpatient Gene Sapp [place] [id number] [facility] 2017-10-17 11:00:00 2017-10-17 11:00:00 Outpatient Gene [place] [id number] [facility] 2017-10-16 09:45:00 2017-10-16 09:45:00 Outpatient Gene [place] [id number] [facility] 2017-10-16 09:00:00 2017-10-16 09:00:00 Outpatient Gene Sapp Md Pa Gene [place]app Md Pa [id number] [facility]Works 2017-10-08 15:30:00 2017-10-08 15:30:00 Outpatient Gene Sapp [place] [id number] [facility] 2017-03-29 10:45:00 2017-03-29 10:45:00 Out[place] [id number] [facility] 2017-03-29 10:45:00 2017-03-29 10:45:00 [place] [id number] [facility] 2017-02-08 09:50:00 2017-02-08 23:59:00 Outpatient Angely Heredia [facility] [id number] 2016-09-19 14:00:00 2016-09-19 14:00:00 Outpatient Sekou ADAMES PA [id number] [facility] 2016-09-07 15:00:00 2016-09-07 15:00:00 Outpatient Sekou ADAMES PA [id number] [facility]Works 2016-03-08 13:15:00 2016-03-08 13:15:00 Outpatient Sekou ADAMES PA [id number] [facility] 2015-09-08 13:00:00 2015-09-08 13:00:00 Outpatient Sekou ADAMES PA [id number] [facility] 2015-09-02 11:15:00 2015-09-02 11:15:00 Outpatient Sekou ADAMES PA [id number] [facility] 2015-09-02 11:00:00 2015-09-02 11:00:00 Outpatient Sekou ADAMES PA [id number] [facility] 2015-09-02 08:30:00 2015-09-02 08:30:00 Outpatient Sekou ADAMES PA [id number] [facility]Works 2015-09-01 13:00:00 2015-09-01 13:00:00 Outpatient Sekou ADAMES PA [id number] [facility]Works Results Test Description Test Time Test Comments Results Result Comments Source Urine color determination 2020-07-23 22:15:00 Test Item Urine Color (test code = 5778-6) YELLOW YELLOW [facility] [id number] 22:15:00* Test Item Value Reference Range Interpretation Comments Urine Clarity (test code = 39083-9) [facility] 2020-07-23 22:15:00* Test Item Value Reference Range Interpretation Comments Urine Specific [place] (test code = 5811-5) 1.020 1.010-1.02 5 [facility] by automated test [id number] 22:15:00* Test Item Value Reference Range Interpretation Comments Urine pH (test code = 13524-7) 6 5-7 [facility] leukocyte esterase detection by [id number] 22:15:00* Test Item Value Reference Range Interpretation Comments Urine Leukocyte Esterase (test code = 5799-2) NEGATIVE NEGATIVE [facility] nitrite [id number] 22:15:00* Test Item Value Reference Range Interpretation Comments Urine Nitrite (test code = 05505-8) NEGATIVE NEGATIVE [facility] protein measurement by test strip (mass/volume)2020-07-23 22:15:00* Test Item Value Reference Range Interpretation Comments Urine Protein (test code = 5804-0) >=300 NEGATIVE [facility] glucose [id number] 22:15:00* Test Item Value Reference Range Interpretation Comments Urine Glucose (UA) (test code = 2349-9) NEGATIVE NEGATIVE [facility] ketones detection by automated test [id number] 22:15:00* Test Item Value Reference Range Interpretation Comments Urine Ketones (test code = 53336-5) NEGATIVE NEGATIVE [facility] urobilinogen measurement by test strip (mass/volume)2020-07-23 22:15:00* Test Item Value Reference Range Interpretation Comments Urine Urobilinogen (test code = 92301-9) 1 0.2-1 [facility] total bilirubin measurement (mass/volume)2020-07-23 22:15:00* Test Item Value Reference Range Interpretation Comments Urine Bilirubin (test code = 1978-6) NEGATIVE NEGATIVE [facility] erythrocytes [id number] 22:15:00* Test Item Value Reference Range Interpretation Comments Urine Blood (test code = 80220-3) TRACE NEGATIVE [facility] urine sediment leukocyte count by microscopy (number/high power field)2020-07-23 22:15:00* Test Item Value Reference Range Interpretation Comments Urine WBC (test code = 5821-4) 6-10 0-5 [facility] Center[facility]rythrocytes detection in urine sediment by light [id number] 22:15:00* Test Item Value Reference Range Interpretation Comments Urine RBC (test code = 40813-4) 11-20 0-5 [facility] Center[facility]acteria detection in urine sediment by light [id number] 22:15:00* Test Item Value Reference Range Interpretation Comments Urine Bacteria (test code = 43861-0) MODERATE NONE [facility] CenterEpithelial cells detection in urine sediment by light [id number] 22:15:00* Test Item Value Reference Range Interpretation Comments Urine Epithelial Cells (test code = 98640-4) FEW NONE [facility] CenterHyaline casts detection in urine sediment by light [id number] 22:15:00* Test Item Value Reference Range Interpretation Comments Urine Hyaline Casts (test code = 96990-7) 0-1 0-1 [facility] CenterCT B[facility]IN [id number] 21:27:00 [facility] [address] [address] Patient Name: ADRIAN MCKEE MR #: [id number] : 1945 Age/Sex: 75/M Req #: [id number] Adm Physician: Ordered by: ADRIAN DORMAN DO Report #: [id number] Location: Room/Bed: Procedure: [id number] CT/CT BRAIN WO Exam Date: 07/23/20 Exam Time: 2056 REPORT STATUS: Signed EXAMINATION: Head CT HISTORY: 75-year-old male with pain and memory loss COMPARISON: None. TECH NIQUE: Helical axial images of the head were obtained. Reformatted coronal an d sagittal images from the axial data. Dose modulation, iterative reconstruct ion, and/or weight based adjustment of the mA/kV was utilized to reduce the ra diation dose to as low as reasonably achievable. FINDINGS: Parenc hyma: 1. Scattered ethmoid confluent periventricular and partida radiata lisandro er hypodensities, most likely nonspecific chronic microvascular ischemic hutchins es. 2. No mass or hemorrhage. No CT evidence of acute territorial vascular in sult. Extra-axial spaces:No abnormal density. No extra-axial fl uid collections Brain volume: Mild generalized brain volume loss Ventricles: No hydrocephalus or displacement. Arteries: No density sug gestive of thrombus. Dural sinuses: No abnormal density. Foramen magnum: No mass, Chiari malformation, or basilar invagination. Sella: No obvious mass. Paranasal/mastoid sinuses: Imaged portions unremarkable. Skull/Scalp: No lytic or blastic lesions. No fractures. IMPRESS ION: 1. No acute intracranial abnormalities. 2. Moderate chronic microv ascular ischemic changes. 3. Mild generalized parenchymal volume loss. S igned by: Dr. Arturo Blackman M.D. on 07/23/2020 9:32 PM Dictated By: ARTURO LOREDO MD 31 Transcribed By: MALATHI on 07/23/202131 COPY TO: ADRIAN DORMAN DO CHEST 2 [id number] 21:25:00 [place] [address] Patient Name: ADRIAN MCKEE MR #: [id number] : 1945 Age/Sex: 75/M Req #: [id number] Adm Physician: Ordered by: ADRIAN DORMAN DO Report #: [id number] Location: ER Room/Bed: Procedure: [id number] DX/CHEST 2 VIE WS Exam Date: 07/23/20 Exam Time: 2104 REPORT STATUS: Signed EXAMINATION: CHEST 2 V IEWS INDICATION: Hurts all over COMPARISON: [facility] and [facility] CT on 10/12/2010 FINDINGS: TUBES and WINDY ES: None. LUNGS: Low lung volumes. Lungs are clear. No consolidations. PLEURA: Calcifications project in the left lateral hemithorax, can be pleu ral plaques as described on chest x-ray and abdominal CT from 10/12/2010. HEART AND MEDIASTINUM: The cardiomediastinal silhouette is unremarkable. BONES AND SOFT TISSUES: No acute osseous lesion. Soft tissues are unrema rkable. UPPER ABDOMEN: No free air under the diaphragm. IMPRESSION : Calcifications project in the left lateral hemithorax, can be pleural pl aques from prior is best as exposure, as described on chest x-ray and abdomina l CT from 10/12/2010. A nonemergent chest CT can further characterize. Si gned by: Zeke Chopra DO on 07/23/2020 9:56 PM Dictated By: ZEKE PANTOJA DO 55 Transc ribed By: MALATHI on 07/23/202155 COPY TO: ADRIAN DORMAN DO Blood leukocytes automated count (number/volume)2020-07-23 20:22:00* Test Item Value Reference Range Interpretation Comments White Blood Count (test code = 6690-2) 10.02 4.8-10.8 [facility] automated count (number/volume)2020-07-23 20:22:00* Test Item Value Reference Range Interpretation Comments Red Blood Count (test code = 789-8) 5.23 4.3-5.7 [facility]Blood hemoglobin measurement (moles/volume)2020-07-23 20:22:00* Test Item Value Reference Range Interpretation Comments Hemoglobin (test code = 64004-9) 13.7 14.0-18.0 [facility] CenterAutomated blood hematocrit (volume fraction)2020-07-23 20:22:00* Test Item Value Reference Range Interpretation Comments Hematocrit (test code = 4544-3) 43.4 38.2-49.6 [facility] CenterAutomated erythrocyte mean corpuscular vxeskn6730-74-56 20:22:00* Test Item Value Reference Range Interpretation Comments Mean Corpuscular Volume (test code = 787-2) 83.0 81-99 [facility] CenterAutomated erythrocyte mean corpuscular hemoglobin (mass per erythrocyte)2020-07-23 20:22:00* Test Item Value Reference Range Interpretation Comments Mean Corpuscular Hemoglobin (test code = 785-6) 26.2 28-32 [facility] CenterAutnovant health charlotte orthopaedic hospitaled erythrocyte mean corpuscular hemoglobin concentration measurement (mass/volume)2020-07-23 20:22:00* Test Item Value Reference Range Interpretation Comments Mean Corpuscular Hemoglobin Concent (test code = 786-4) 31.6 31-35 [facility] CenterRDW BgpMl-Guf6431-01-02 20:22:00* Test Item Value Reference Range Interpretation Comments Red Cell Distribution Width (test code = 43059-2) 14.9 11.7 -14.4 [facility] CenterAutnov[facility] health char[facility] orthopaedic hospitaled blood platelet count (count/volume)2020-07-23 20:22:00* Test Item Value Reference Range Interpretation Comments Platelet Count (test code = 777-3) 257 140-360 [facility] CenterAutomated blood segmented neutrophil count as percentage of total jmersunvtl6357-48-03 20:22:00* Test Item Value Reference Range Interpretation Comments Neutrophils (%) (Auto) (test code = 54889-8) 52.6 38.7-80.0 [facility] CenterAutomated blood lymphocyte count as percentage ot total wrmjloxagy3808-24-04 20:22:00* Test Item Value Reference Range Interpretation Comments Lymphocytes (%) (Auto) (test code = 736-9) 37.9 18.0-39.1 [facility] CenterAutomated blood monocyte count as percentage of total wcyslqgbjl9974-10-71 20:22:00* Test Item Value Reference Range Interpretation Comments Monocytes (%) (Auto) (test code = 5905-5) 5.9 4.4-11.3 [facility] CenterAutomated blood eosinophil count as percentage of total twlobdvcyf5380-95-87 20:22:00* Test Item Value Reference Range Interpretation Comments Eosinophils (%) (Auto) (test code = 713-8) 2.7 0.0-6.0 [facility] CenterAutomated blood basophil count as percentage of total ugxqgisvcl9703-78-83 20:22:00* Test Item Value Reference Range Interpretation Comments Basophils (%) (Auto) (test code = 706-2) 0.6 0.0-1.0 [facility] CenterFluoroscopic procedure less than one hour xyflavlx9319-67-18 20:22:00* Test Item Value Reference Range Interpretation Comments IM GRANULOCYTES % (test code = IM GRANULOCYTES %) 0.3 0.0- 1.0 [facility] CenterAutomated blood neutrophil count 2020-07-23 20:22:00* Test Item Value Reference Range Interpretation Comments Neutrophils # (Auto) (test code = 751-8) 5.3 2.1-6.9 [facility] CenterBlood lymphocytes count (number/volume) 2020-07-23 20:22:00* Test Item Value Reference Range Interpretation Comments Lymphocytes # (Auto) (test code = 73692-8) 3.8 1.0-3.2 [facility] CenterBlood monocytes automated count (number/volume)2020-07-23 20:22:00* Test Item Value Reference Range Interpretation Comments Monocytes # (Auto) (test code = 742-7) 0.6 0.2-0.8 [facility] CenterAutomated blood eosinophil count 2020-07-23 20:22:00* Test Item Value Reference Range Interpretation Comments Eosinophils # (Auto) (test code = 711-2) 0.3 0.0-0.4 [facility] CenterAutomated blood basophil count (count/volume)2020-07-23 20:22:00* Test Item Value Reference Range Interpretation Comments Basophils # (Auto) (test code = 704-7) 0.1 0.0-0.1 [facility] CenterFluoroscopic procedure less than one hour ibezjotl5520-23-78 20:22:00* Test Item Value Reference Range Interpretation Comments Absolute Immature Granulocyte (auto (ralph t code = Absolute Immature Granulocyte (auto) 0.03 0-0.1 [facility] plasma sodium measurement (moles/volume)2020-07-23 20:22:00* Test Item Value Reference Range Interpretation Comments Sodium Level (test code = 2951-2) 135 136-145 [facility] Hospitalerum or plasma potassium measurement (moles/volume)2020-07-23 20:22:00* Test Item Value Reference Range Interpretation Comments Potassium Level (test code = 2823-3) 4.4 3.5-5.1 [facility] Hospitalerum or plasma chloride measurement (moles/volume)2020-07-23 20:22:00* Test Item Value Reference Range Interpretation Comments Chloride Level (test code = 2075-0) 104 98-107 [facility] Hospitalerum or plasma carbon dioxide, total measurement (moles/volume)2020-07-23 20:22:00* Test Item Value Reference Range Interpretation Comments Carbon Dioxide Level (test code = 2028-9) 22 22-29 [facility] Hospitalerum or plasma anion hvj9910-98-38 20:22:00* Test Item Value Reference Range Interpretation Comments Anion Gap (test code = 00581-9) 13.4 8-16 [facility]erum or plasma urea nitrogen measurement (mass/volume)2020-07-23 20:22:00* Test Item Value Reference Range Interpretation Comments Blood Urea Nitrogen (test code = 3094-0) 16 7-26 [facility]erum or plasma creatinine measurement (mass/volume)2020-07-23 20:22:00* Test Item Value Reference Range Interpretation Comments Creatinine (test code = 2160-0) 1.56 0.72-1.25 [facility] Hospitalerum or plasma urea nitrogen/creatinine mass deiry3179-29-77 20:22:00* Test Item Value Reference Range Interpretation Comments BUN/Creatinine Ratio (test code = 3097-3) 10 6-25 [facility] CenterEstimated glomerular filtration rate (GFR) fumbapsgxphzv9338-86-30 20:22:00* Test Item Value Reference Range Interpretation Comments Estimat Glomerular Filtration Rate (test code = 373498239) 44 >60 Ranges were taken from the National Kidney Disease Education Program and the [facility] literature.Reference ranges:60 or greater: Gbhjnv65-61 ( for 3 consecutive months): Chronic kidney disease 15 or less: Kidney failureConnally Memorial Medical CenterGlucose hgsyigrpedt7206-58-78 20:22:00* Test Item Value Reference Range Interpretation Comments Glucose Level (test code = CLI7402) 110 74-118 [facility]er[facility] or plasma calcium measurement (mass/volume)2020-07-23 20:22:00* Test Item Value Reference Range Interpretation Comments Calcium Level (test code = 52184-2) 10.7 8.4-10.2 [facility]er[facility] or plasma total bilirubin measurement (mass/volume)2020-07-23 20:22:00* Test Item Value Reference Range Interpretation Comments Total Bilirubin (test code = 1975-2) 0.5 0.2-1.2 [facility] CenterFluoroscopic procedure less than one hour afbprbjm1004-15-34 20:22:00* Test Item Value Reference Range Interpretation Comments Aspartate Amino Transf (AST/SGOT) (test code = Aspartate Amino Transf (AST/SGOT)) 16 5-34 [facility] Hospitalerum or plasma alanine aminotransferase measurement (enzymatic activity/volume)2020-07-23 20:22:00* Test Item Value Reference Range Interpretation Comments Alanine Aminotransferase (ALT/SGPT) (test code = 1742-6) 12 0-55 [facility] Hospitalerum or plasma protein measurement (mass/volume)2020-07-23 20:22:00* Test Item Value Reference Range Interpretation Comments Total Protein (test code = 2885-2) 7.1 6.5-8.1 [facility] Hospitalerum or plasma albumin measurement (mass/volume)2020-07-23 20:22:00* Test Item Value Reference Range Interpretation Comments Albumin (test code = 1751-7) 3.2 3.5-5.0 [facility] CenterPlasma globulin measurement (mass/volume) 2020-07-23 20:22:00* Test Item Value Reference Range Interpretation Comments Globulin (test code = 71112-7) 3.9 2.3-3.5 [facility]er[facility] or plasma albumin/globulin mass piwoj5151-08-77 20:22:00* Test Item Value Reference Range Interpretation Comments Albumin/Globulin Ratio (test code = 1759-0) 0.8 0.8-2.0 [facility]erum or plasma alkaline phosphatase measurement (enzymatic activity/volume)2020-07-23 20:22:00* Test Item Value Reference Range Interpretation Comments Alkaline Phosphatase (test code = 6768-6) 146 40-150 [facility] CenterBNP Hlm-eLay4049-08-02 20:22:00* Test Item Value Reference Range Interpretation Comments B-Type Natriuretic Peptide (test code = 45434-8) 657.0 0-100 [facility]erum or plasma creatine kinase measurement (enzymatic activity/volume)2020-07-23 20:22:00* Test Item Value Reference Range Interpretation Comments Creatine Kinase (test code = 2157-6) 18 30-200 [facility]erum or plasma creatine kinase MB measurement (mass/volume)2020-07-23 20:22:00* Test Item Value Reference Range Interpretation Comments Creatine Kinase MB (test code = 39414-9) 0.40 0-5.0 [facility] CenterTroponin I measurement by highly sensitive enzyme rnmdatnoilk4903-84-07 20:22:00* Test Item Value Reference Range Interpretation Comments Troponin I (test code = 25848-8) 0.011 0-0.300 [facility]erum or plasma lipase measurement (enzymatic activity/volume)2020-07-23 20:22:00* Test Item Value Reference Range Interpretation Comments Lipase (test code = 3040-3) 18 8-78 [facility][U] XRAY KNEE 3 VWS RIGHT [id number] 12:48:00Images acquired, not reported on this accession number.[facility] blood glucose measurement by glucometer (mass/volume) 2020-04-14 08:56:00* Test Item Value Reference Range Interpretation Comments Bedside Glucose (test code = 04248-7) 179 70-120 Meter ID: [id number] Memorial Medical CenterFluoroscopic procedure less than one hour cnfpsjym9623-85-41 15:30:00* Test Item Value Reference Range Interpretation Comments Coronavirus (PCR) (test code = Coronavirus (PCR)) NOT DETECTED NOTD ETECTED SARS-COV-2 (COVID19), HIGHRISK, RT-PCRNegative results do not preclude SARS-CoV- 2 infection and should not be used as the sole basis for patient management deci sions. Negative results must be combined with clinical observations, patient his tory, and epidemiological information. Optimum specimen types and timing for pea k viral levels during infections caused by SARS-CoV-2 have not been determined. Collection of multiple specimens ot types of specimens may be necessary to detec t virus. Improper specimen collection and handling, sequence variability under p rimers/probes, or organism present below the limit of detection may lead to fals e negative results. Positive and negative predictive values of testing are highl y dependent on prevalance. False negative test results are more likely when prev alence is high.The expected result is negative (not detected).The SARS-CoV-2 ralph t is intended for the qualitative detection of nucleic acid from SARS-CoV-2 in n asopharyngeal and oropharyngeal swab samples from patients who meet COVID-19 cli nical and or epidemiological criteria. For lower respiratory tract specimens, th e assay is submitted for authoriztion by FDA under an Emergency Use Authorizatio n (EUA). Testing methodology is real time RT-PCR. If received as separate collec tion devices, nasopharygeal and oropharyngeal specimens are combined for analysi s. Additional specimens may be split to a separate accession for analysi and rep orting as this test includes a single unit of service.Test results must be corre lated with clinical presentation and evaluated in the context of other laborator y and epidemiologic data. Test performance can be affected because the epidemiol ogy and clinical spectrum of infection caused by SARS-CoV-2 is not fully known. For example, the optimum types of specimens to collect and when during the cours e of infection these specimens are most likely to contain detectable viral RNA m ay not be known.This test has not been Food and Drug Administration (FDA) cleare d or approved and has been authorized by FDA under an Emergency Use Authorizatio n (EUA). The test is only authorized for the duration of the declaration that ci rcumstances exist justifying the authorization of emergency use of in vitro diag nostic tests for detection and/or diagnosis of SARS-CoV-2 under section 564(b) o f the Act, 21 U.S.C. section 360bbb-3(b)(1), unless the authorization is termina margarette or revoked sooner. [facility] are certified under the C linical Laboratory Improvement Amendments of 1988 (CLIA), 42 U.S.C. section 263a , to perform high complexity tests.Testing performed by [facility] [address] [place], [place] [phone] Director: James Raman M.D.CLIA # [id number] [facility]aleU/S, ABDOMINAL, KPIUFZK1669-03-51 10:53:00Reason for Exam:->z00.6FINAL REPORT Limited Abdominal ultrasound. Clinical history: z00.6 Comparison study: December 13, 2018 Findings: The visualized liver is normal in appearance with a normal echotexture. It measures 17.0 cm in span. Portions of the left lobe are obstructed by bowel gas. There is no evidence of intra or extrahepatic biliary dilatation with the common bile duct measuring 6 mm in size. The main portal vein diameter is 1.0 [...] Verified Date/Time: 06/17/2019 10:53:19 Reading Location: [address] Radiology Reading Room [id number] 12:10:00* Test Item Value Reference Range Interpretation Comments GLUBED (test code = GLUBED) 181 mg/dL 70-110 H BASIC METABOLIC [id number] 07:58:00* Test Item Value Reference Range Interpretation [...] code = CA) 10.3 mg/dl 8.0-10.5 N QZSRAW0062-58-84 07:58:00* Test Item Value Reference Range Interpretation Comments LIPASE (test code = LIP) 238 Units/L 65.0-230.0 H HLRHWK3558-13-71 07:28:00* Test Item Value Reference Range Interpretation Comments GLUBED (test code = GLUBED) 132 mg/dL 70-110 H TINNKU8356-04-68 20:59:00* Test Item Value Reference Range Interpretation Comments GLUBED (test code = GLUBED) 166 mg/dL 70-110 H [id number] 15:48:00* Test Item Value Reference Range Interpretation Comments GLUBED (test code = GLUBED) 151 mg/dL 70-110 H BJNCEU8726-88-81 11:15:00* Test Item Value Reference Range Interpretation Comments GLUBED (test code = GLUBED) 183 mg/dL 70-110 H TGAKIM6694-99-20 08:07:00* Test Item Value Reference Range Interpretation Comments GLUBED (test code = GLUBED) 134 mg/dL 70-110 H [id number] 21:01:00* Test Item Value Reference Range Interpretation Comments GLUBED (test code = GLUBED) 118 mg/dL 70-110 H [id number] 13:59:00* Test Item Value Reference Range Interpretation Comments HGBA1C% (test code = HGBA1C%) 6.8 %A1C 4.8-6.0 H ESTIMATED AVERAGE GLUCOSE (test code = EAG) 148 MG/DL BASIC METABOLIC [id number] 13:44:00* Test Item Value Reference Range Interpretation [...] code = CA) 10.0 mg/dl 8.0-10.5 N [id number] 13:44:00* Test Item Value Reference Range Interpretation Comments LIPASE (test code = LIP) 411 Units/L 65.0-230.0 H [id number] 06:21:00* Test Item Value Reference Range Interpretation Comments GLUBED (test code = GLUBED) 121 mg/dL 70-110 H [id number] 00:41:00* Test Item Value Reference Range Interpretation Comments GLUBED (test code = GLUBED) 136 mg/dL 70-110 H [id number] 17:51:00* Test Item Value Reference Range Interpretation Comments GLUBED (test code = GLUBED) 115 mg/dL 70-110 H BASIC METABOLIC [id number] 11:55:00* Test Item Value Reference Range Interpretation [...] .0 N Specimen comments: Clean CatchSpecimen comments: .[id number] 11:55:00* Test Item Value Reference Range Interpretation Comments LIPASE (test code = LIP) 330 Units/L 65.0-230.0 H Specimen comments: Clean CatchSpecimen comments: .B-TYPE NATRIURETIC PEPTIDE 2019-04-15 11:55:00* Test Item Value Reference Range Interpretation Comments B-TYPE NATRIURETIC PEPTIDE (test code = BNP) 113 PG/ML 5-100 H Specimen comments: Clean CatchSpecimen comments: .[id number]-[id number] 11:55:00 * Test Item Value Reference Range [...] .0 N Specimen comments: Clean CatchSpecimen comments: .[id number] 11:53:00* Test Item Value Reference Range Interpretation Comments LIPASE (test code = LIP) 330 Units/L 65.0-230.0 H Specimen comments: Clean CatchSpecimen comments: .B-TYPE NATRIURETIC PEPTIDE 2019-04-15 11:53:00* Test Item Value Reference Range Interpretation Comments B-TYPE NATRIURETIC PEPTIDE (test code = BNP) PG/ML 5-100 Specimen comments: Clean CatchSpecimen comments: .[id number] 11:53:00 * Test Item Value Reference Range Interpretation Comments TROPONIN-I (test code = TROPI) <0.02 NG/ML 0.00-0.06 N REFERENCE RANGE TROPONIN I HEALTHY INDIVIDUALS: <0.06 ng/mL R/O ISCHEMIA: 0.07 - 0.60 ng/mL CUT-OFF RANGE FOR AMI: 0.60 - 1.5 ng/mL Specimen comments: Clean CatchSpecimen comments: .PROTHROMBIN [id number] 11:44:00* Test Item Value Reference Range Interpretation [...] 2.5 - 3.5 Specimen comments: .THROMBOPLASTIN TIME [id number] 11:44:00* Test Item Value Reference Range Interpretation Comments THROMBOPLASTIN TIME PARTIAL (test code = PTT) 25.70 SECONDS 25.86-3 6.07 [facility] Therapeutic Range - APTT of 55.8-85.4 secondscorrelates with plasma heparin concentration of 0.2-0.4 u/mL New range effective - 12/17/2016 Specimen comments: .BASIC METABOLIC [id number] 11:41:00* Test Item Value Reference Range Interpretation [...] 50.0-136 .0 Specimen comments: Clean CatchSpecimen comments: .[id number] 11:41:00* Test Item Value Reference Range Interpretation Comments LIPASE (test code = LIP) Units/L 65.0-230.0 Specimen comments: Clean CatchSpecimen comments: .B-TYPE NATRIURETIC PEPTIDE 2019-04-15 11:41:00* Test Item Value Reference Range Interpretation Comments B-TYPE NATRIURETIC PEPTIDE (test code = BNP) PG/ML 5-100 Specimen comments: Clean CatchSpecimen comments: .[id number] 11:41:00 * Test Item Value Reference Range Interpretation Comments TROPONIN-I (test code = TROPI) NG/ML 0.00-0.06 Specimen comments: Clean CatchSpecimen comments: .TROPONIN I [id number] 11:34:00* Test Item Value Reference Range Interpretation [...] of temporal changes in troponin levelscharacteristic of VT. CBC W/AUTO [id number] 11:30:00* Test Item Value Reference Range Interpretation [...] K/mm3 0.0-0.2 N - XR CHEST 1 [id number] 11:19:00 FAX: Angely Kapoor MD [phone] [place]: EM St: PRE FAX: Liz Yepez MD [phone] Name: ADRIAN MCKEE [facility] : 1945 Age/S: 74/M [address] [facility] [employer] Unit #: [id number] [place]: [place]: [place] [id number] Acct: [id number] Dis Date: Status: PRE ER PHONE #: [phone] Exam Date: 04/15/2019 1111 FAX #: [phone] Reason: near syncope EXAMS: CPT CODE: [id number] XR CHEST 1 V 13872 EXAM: - XR CHEST 1 V Location [...] M.D.; Liz Yepez MD Technologist: NOE GARNER Trnscrd Date/Time/By: 04/15/2019 (1118) : By: sylvie BATISTACB5 PAGE 1 Signed Report FAX: Angely Kapoor MD [phone] [place]: St: PRE FAX: Liz Yepez MD [phone] Name: ADRIAN MCKEE [facility] : 1945 Age/S: 74/M [address] [facility] Unit #: [id number] Loc: [facility], [place] Phys: Liz Yepez MD [id number] Acct: [id number] Dis Date: Statu s: PRE ER PHONE #: [phone] Exam Date: 04/15/2019 1111 FAX #: [phone] Reason: near sy ncope EXAMS: CPT CODE: [id number] XR CHEST 1 V 39787 <Continued> Orig Print D/T: S: 04/15/2019 (0426) PAGE 2 Signed Report U/S, ABDOMINAL, LIMITED [...] MDReport Verified Date/Time: 12/13/2018 15:51:20 Reading Location: [facility] [id number] Ultrasound Reading Room
[2020-08-03] MEDS ORDERED: HYDROMORPHONE 1MG/1ML INJ ONE (11:59)
--- NOTE | 2020-08-03 12:34 | Diagnostic Imaging Report ---
Exam: Right knee 2 views History: Postop Comparison: None. Findings: See impression Impression: Postoperative radiographs from total right knee arthroplasty show intact femoral and tibial components, with expected subcutaneous gas and overlying skin mary jo. No periprosthetic displaced fracture. Signed by: Dr. Brandon Ruth M.D. on 08/03/2020 12:31 PM
--- NOTE | 2020-08-03 13:49 | Operative Report ---
DATE OF PROCEDURE: 08/03/2020 SURGEON: Brandon Chapman MD MAGNETIC HEALER: Lucio Almodovar PA-C. PREOPERATIVE DIAGNOSIS: Osteoarthritis, right knee. POSTOPERATIVE DIAGNOSIS: Osteoarthritis, right knee. PROCEDURE: Right total knee arthroplasty. INDICATIONS: The patient is a 75-year-old gentleman who has end-stage arthritis of his right knee. He has failed conservative management and would like to proceed with a right total knee replacement. The risks and benefits of the procedure have been discussed. His medical concerns have been discussed. All of his questions have been answered. He states he understands and wishes to proceed. PROCEDURE IN DETAIL: The patient was brought to the operating room and placed under general anesthetic. He received prophylactic antibiotics, a regional block and tranexamic acid in the holding area. His right lower extremity was prepped and draped in a sterile manner. A preoperative time-out was performed. The extremity was exsanguinated and a proximal tourniquet was inflated to 300 mmHg. An anterior incision with a medial parapatellar arthrotomy was performed. A large joint effusion was evacuated. Soft tissue releases were performed to bring the knee up into flexion with the patella everted. Marginal osteophytes, the cruciate ligaments and meniscal remnants were removed. A [employer] knee system was used throughout the case. An extramedullary cutting guide was used to resect the proximal tibia. The tibial cut was referenced off the least affected lateral compartment. Complete loss of articular cartilage in the medial compartment with excessive medial wear was noted. The tibial base plate was a size 7. The central fin punch was impacted and attention was directed towards the distal femur. An intramedullary cutting guide was used to resect the distal femur in 6 degrees of valgus and rotation referencing off a combination of landmarks including Whitesides line, the epicondylar axis, and the posterior condyles. The femoral component was a size 7. The anterior and posterior cuts were made. Trial reductions were performed. I felt that the 11 mm ultracongruent tibial insert provided appropriate soft tissue balancing in full extension and 90 degrees of flexion. The patella was resurfaced using a 35 mm x 7.5 mm patellar button. The thickness was checked before and after and was right around 25 mm. Patellar tracking was noted to be concentric. The trial implants were then all removed. A 100 mL premixed pericapsular CHELLE injection was placed into the surrounding soft tissue. The knee was thoroughly irrigated with a shower tip pulsatile lavage. The components were cemented into place using a single mix of high viscosity Biomet cement preloaded with antibiotics. Care was taken to remove extravasated cement. The wound was further irrigated while the cement cured. The arthrotomy was then closed after sprinkling 500 mg of vancomycin powder into the deep wound. The knee was put through flexion and extension to ensure a secure closure of the arthrotomy. The skin was closed with subcuticular Vicryl and mary jo. The skin was thin and frail. A sterile Aquacel bandage was applied. The patient was then extubated and transported to the recovery room in stable condition. Blood loss was minimal. All needle and sponge counts were correct. Brandon Chapman MD DR/JOEL /[id number]
[2020-08-03] MEDS ORDERED: MORPHINE SULFATE INJ 10 MG/ML ONE (13:52)
[2020-08-03] MEDS ORDERED: MIDAZOLAM HCL 2 MG/2 ML VIAL ONE (13:52)
[2020-08-03] MEDS ORDERED: FENTANYL CITRATE/PF 100MCG/2 ML INJ ONE (13:52)
--- NOTE | 2020-08-03 15:00 | NUR ---
PT ARRIVED TO UNIT RESP EVEN AND UNLABORED AT THIS TIME NO DISTRESS NOTED, PT ALERT,NO C/O PAIN AT THIS TIME, PT ABLE TO MAKE NEEDS KNOWN, PT ORIENTED TO BED AND CALL LIGHT, BED IN LOWEST POSITION, BED RAILS UP X2, CALL LIGHT IN REACH
[2020-08-03 15:05] VITALS: BP 137/82
[2020-08-03 15:46] VITALS: BP 137/82
[2020-08-03] MEDS ORDERED: CELECOXIB 100 MG CAP PO SCH (17:00)
[2020-08-03] MEDS: ASPIRIN 325 MG TAB PO SCH ×2 (17:02→20:56)
[2020-08-03] MEDS: CEFAZOLIN SOD 1 GM/NS 50ML 50 ML IV SCH (17:02)
[2020-08-03] MEDS: SODIUM CHLORIDE 0.9% 1000ML 1,000 ML IV SCH (17:03)
[2020-08-03] MEDS: HYDROCODONE/APAP 5MG-325MG TAB PO PRN (17:18)
[2020-08-03] MEDS ORDERED: LIDOCAINE HCL 2% LOCAL INJ 5 ML SDV VIAL INJ ONE (17:43)
[2020-08-03] MEDS ORDERED: PROPOFOL IV EMULSION 10 MG/ML 20 ML VIAL ONE (17:43)
[2020-08-03] MEDS ORDERED: SEVOFLURANE INHAL SOLN 250 ML PEN BTL ONE (17:43)
[2020-08-03] MEDS ORDERED: ONDANSETRON HCL INJ 2MG/ML 2ML 2 MG/ML VIAL ONE (17:43)
[2020-08-03] MEDS ORDERED: ROPIVACAINE 0.5% 5 MG/ML 30 ML SDV ONE (17:50)
--- NOTE | 2020-08-03 19:20 | NUR ---
Report received from day RN. Pt is alert and oriented x3. Respirations are even and unlabored. rt knee dressing is dry and intact. pt denies pain. PIV left hand NS infusing at 75 ml/hr. Site healthy. Call light within reach. Bed in low position.
--- NOTE | 2020-08-03 19:23 | NUR ---
WALKING ROUNDS COMPLETE. REPORT GIVEN TO ONCOMING NURSE.
[2020-08-03 20:00] VITALS: BP 150/72
[2020-08-03 21:00] VITALS: BP 150/72
[2020-08-03] MEDS ORDERED: ZOLPIDEM TARTRATE 5 MG TAB PO PRN (21:00)
[2020-08-04] VITALS: BP 168/74
[2020-08-04] MEDS: CEFAZOLIN SOD 1 GM/NS 50ML 50 ML IV SCH ×2 (01:31→08:59)
[2020-08-04] MEDS: SODIUM CHLORIDE 0.9% 1000ML 1,000 ML IV SCH ×2 (02:08→12:00)
[2020-08-04] MEDS: HYDROCODONE/APAP 5MG-325MG TAB PO PRN (02:39)
[2020-08-04 04:00] VITALS: BP 149/74
--- NOTE | 2020-08-04 05:38 | Consultation ---
DATE OF CONSULTATION: 08/04/2020 REASON FOR CONSULTATION: Postop medical management. HISTORY OF PRESENT ILLNESS: The patient is a 75-year-old gentleman, status post right knee arthroplasty, who is doing well postoperatively. Denies any chest pain, fever, chills, nausea, vomiting, headache, shortness of breath, or dizziness on review of systems. He states his pain is well controlled. PAST MEDICAL HISTORY: Significant for diabetes, chronic kidney disease stage 3, hypertension, anxiety, reflux disease, and hyperlipidemia. MEDICATIONS: See MAR. ALLERGIES: NONE. SOCIAL HISTORY: Nondrinker, nonsmoker. He is and retired, lives at home. FAMILY HISTORY: Noncontributory. PHYSICAL EXAMINATION: VITAL SIGNS: Temperature 97.0, pulse 65, blood pressure 168/74, sats 96% on room air. GENERAL: In no apparent distress, lying in bed. NECK: Supple. No lymphadenopathy. CARDIOVASCULAR: Regular rate and rhythm. LUNGS: Clear to auscultation bilaterally. ABDOMEN: Good bowel sounds. Soft, nontender. EXTREMITIES: No clubbing or cyanosis. NEUROLOGIC: Nonfocal. ASSESSMENT AND PLAN: 1. Right knee pain. We will continue with postoperative care since he is doing very well. 2. Anemia. Check a CBC. 3. Chronic kidney disease, stage 3. Continue to monitor as an outpatient. 4. Hypertension. Continue to monitor. Restart his home medicines. 5. Hyperlipidemia. We will restart his home medications. 6. Anemia. Check a CBC. Please see hospital chart for full details. MD WENDY Ramos/JOEL /[id number]
[2020-08-04 06:23] LABS: HEMATOCRIT 35.1 % (38.2-49.6); HEMOGLOBIN 11.1 g/dL (14.0-18.0)
--- NOTE | 2020-08-04 07:00 | NUR ---
BEDSIDE SHIFT REPORT RECEIVED FROM AREA SAFETY MANAGER RN. PT DENIES NEEDS.
[2020-08-04 08:09] VITALS: BP 167/83
[2020-08-04 08:51] VITALS: BP 167/83
[2020-08-04] MEDS: ASPIRIN 325 MG TAB PO SCH (08:59)
[2020-08-04] MEDS ORDERED: FLUOXETINE HCL 10 MG CAP PO SCH (09:00)
[2020-08-04] MEDS ORDERED: METOPROLOL SUCCINATE 25 MG TAB XL PO SCH (09:00)
[2020-08-04] MEDS ORDERED: LOSARTAN POTASSIUM 25 MG TAB PO SCH (09:00)
[2020-08-04] MEDS ORDERED: AMLODIPINE BESYLATE 10 MG TAB PO SCH (09:00)
--- NOTE | 2020-08-04 10:19 | NUR ---
SPOKE TO BILL AND PT ABOUT SCRIPTS. KNOWLEDGE SHARED THAT THEY HAVE BEEN SENT TO PHARMACY BY DR. CRUZ'S OFFICE
[2020-08-04] MEDS ORDERED: ACETAMINOPHEN 1000 MG/100 ML IV PRN (11:30)
[2020-08-04] MEDS ORDERED: ONDANSETRON HCL 4 MG ORAL DISINTEGRATING TAB PO PRN (12:15)
[2020-08-04] MEDS ORDERED: SIMVASTATIN 20 MG TAB PO SCH (21:00)
== END 2020-08-04 12:55 | disposition home health service (06) ==
LOC: OR 08:23 → PACU V 11:20 → MED/SURG 14:23
PROVIDERS: ADMIT Specialist; ATTEND Specialist
DX: M17.11 Unilateral primary osteoarthritis, right knee (principal); E11.22 Type 2 diabetes mellitus with diabetic chronic kidney disease; I12.9 Hypertensive chronic kidney disease with stage 1 through stage 4 chronic kidney disease, or unspecified chronic kidney disease; N18.30 Chronic kidney disease, stage 3 unspecified; F41.9 Anxiety disorder, unspecified; K21.9 Gastro-esophageal reflux disease without esophagitis; E78.5 Hyperlipidemia, unspecified; D64.9 Anemia, unspecified; Z11.59 Encounter for screening for other viral diseases; Z98.84 Bariatric surgery status; I48.91 Unspecified atrial fibrillation; G47.33 Obstructive sleep apnea (adult) (pediatric); Z79.84 Long term (current) use of oral hypoglycemic drugs; Z01.812 Encounter for preprocedural laboratory examination; Z20.828 Contact with and (suspected) exposure to other viral communicable diseases
CPT/HCPCS: 27447; 36415 ×3; 73560; 80048; 82948 ×2; 85014; 85018; 85025; 86850; 86900; 86920; 97116 ×2; 97139 ×2; 97162; 97530; C1713 ×4; C1776; G0378 ×2; J0171; J0690 ×2; J1100; J1170; J1885; J2001; J2250; J2270; J2405; J2704; J2795; J3010; J3370; J7030 ×2; J7040; U0002

== ENCOUNTER 2020-08-09 14:32 | Inpatient (IN) | payer MEDICARE, OTHER ==
[~2020-08-09] VITALS: Ht 170.2 cm; Wt 104.8 kg
[~2020-08-09 14:32] MED LIST changes: -ROPIVACAINE 246.25 MG, EPINEPHRINE HCL 1:1000 1ML 0.5 MG, CLONIDINE HCL 0.08 MG, KETORO... INJ ONE; -SODIUM CHLORIDE 0.9% 500ML 500 ML ONE; -TRANEXAMIC ACID 1,000 MG/10 ML ML ONE; -VANCOMYCIN HCL 1,000 MG ONE
[2020-08-09 15:56] LABS: BASOPHILS # (AUTO) 0.1 (0.0-0.1); BASOPHILS % 0.4 % (0.0-1.0); EOSINOPHILS # (AUTO) 0.2 (0.0-0.4); EOSINOPHILS % 1.6 % (0.0-6.0); HEMATOCRIT 33.5 % (38.2-49.6); HEMOGLOBIN 10.6 g/dL (14.0-18.0); LYMPHOCYTES # (AUTO) 2.5 (1.0-3.2); LYMPHOCYTES % 20.9 % (18.0-39.1); MEAN CORPUSCULAR HEMOGLOBIN 26.4 pg (28-32); MEAN CORPUSCULAR HGB CONC 31.6 g/dL (31-35); MEAN CORPUSCULAR VOLUME 83.3 fL (81-99); MONOCYTES # (AUTO) 0.8 (0.2-0.8); MONOCYTES % 6.9 % (4.4-11.3); NEUTROPHILS # (AUTO) 8.2 (2.1-6.9); NEUTROPHILS % 69.7 % (38.7-80.0); PLATELET COUNT 307 x10e3/uL (140-360); RED BLOOD COUNT 4.02 x10e6/uL (4.3-5.7); RED CELL DISTRIBUTION WIDTH 14.7 % (11.7-14.4)
[2020-08-09 16:02] LABS: INR 0.76
[2020-08-09 16:13] LABS: ALBUMIN 2.6 g/dL (3.5-5.0); ALBUMIN/GLOBULIN RATIO 0.7 (0.8-2.0); ANION GAP 15.6 mmol/L (8-16); CALCIUM 10.1 mg/dL (8.4-10.2); CREATININE, SERUM 1.92 mg/dL (0.72-1.25); POTASSIUM 4.6 mmol/L (3.5-5.1)
[2020-08-09] MEDS ORDERED: SODIUM CHLORIDE 0.9% 1000ML 1,000 ML IV STA (16:15)
[2020-08-09 16:24] LABS: BILIRUBIN,URINE NEGATIVE (NEGATIVE); CLARITY,URINE SL CLOUDY (CLEAR); COLOR,URINE YELLOW (YELLOW); KETONES,URINE NEGATIVE (NEGATIVE); LEUKOCYTE ESTERASE ,URINE NEGATIVE (NEGATIVE); NITRITE,URINE NEGATIVE (NEGATIVE); PROTEIN,URINE DIPSTICK 2+ (NEGATIVE); URINE UROBILINOGEN 0.2 mg/dL (0.2 - 1)
[2020-08-09 16:35] LABS: EPITHELIAL CELLS,URINE RARE /LPF; MUCUS,URINE FEW (RARE); RBC,URINE 0-5 /HPF (0-5); WBC,URINE (MAN) 0-5 /HPF (0-5)
[2020-08-09] MEDS ORDERED: IOPAMIDOL 370 MG/ML 200 ML INFUS..BTL INJ ONE (17:06)
[2020-08-09] MEDS ORDERED: DEXTROSE 50% SYRINGE 50 ML IV PRN (18:15)
[2020-08-09] MEDS: PANTOPRAZOL 40MG/SOD CHL 0.9% 50 ML IV SCH ×2 (18:37→22:42)
[2020-08-09] MEDS ORDERED: SODIUM CHLORIDE 0.9% 100 ML ONE (19:07)
[2020-08-09] MEDS: SODIUM CHLORIDE 0.9% 1000ML 1,000 ML IV SCH ×2 (20:51→22:42)
[2020-08-09] MEDS: INSULIN LISPRO 100 UNIT/1 ML 3ML VIAL SQ SCH (21:52)
[2020-08-09 22:03] LABS: HEMATOCRIT 28.3 % (38.2-49.6); HEMOGLOBIN 8.9 g/dL (14.0-18.0)
[2020-08-09 23:13] VITALS: BP 121/81
[2020-08-10] VITALS (8 sets, daily range): BP systolic 100–153; BP diastolic 39–88
[2020-08-10 00:55] LABS: FERRITIN 88.52 ng/mL (21.81-274.66)
[2020-08-10 03:53] LABS: HEMATOCRIT 30.7 % (38.2-49.6); HEMOGLOBIN 9.5 g/dL (14.0-18.0)
[2020-08-10] MEDS: PANTOPRAZOL 40MG/SOD CHL 0.9% 50 ML IV SCH ×3 (04:36→20:42)
[2020-08-10] MEDS: INSULIN LISPRO 100 UNIT/1 ML 3ML VIAL SQ SCH ×4 (07:30→21:45)
[2020-08-10] MEDS ORDERED: PANTOPRAZOLE 40 MG 10ML VIAL IV SCH (09:00)
[2020-08-10] MEDS ORDERED: LIDOCAINE HCL 2% LOCAL INJ 5 ML SDV VIAL INJ ONE (12:24)
[2020-08-10] MEDS ORDERED: PROPOFOL IV EMULSION 10 MG/ML 20 ML VIAL ONE (12:24)
[2020-08-10 12:55] LABS: ANION GAP 12.1 mmol/L (8-16); CALCIUM 9.3 mg/dL (8.4-10.2); CREATININE, SERUM 1.75 mg/dL (0.72-1.25); POTASSIUM 4.1 mmol/L (3.5-5.1)
[2020-08-10] MEDS ORDERED: FENTANYL CITRATE/PF 100MCG/2 ML INJ ONE (13:00)
[2020-08-10] MEDS ORDERED: MIDAZOLAM HCL 2 MG/2 ML VIAL ONE (13:00)
[2020-08-10 13:02] LABS: HEMATOCRIT 28.3 % (38.2-49.6); HEMOGLOBIN 8.8 g/dL (14.0-18.0)
[2020-08-10] MEDS: SODIUM CHLORIDE 0.9% 1000ML 1,000 ML IV SCH ×3 (14:00→23:39)
[2020-08-10] MEDS ORDERED: GLUCAGON FOR INJ 1 MG VIAL ONE (16:48)
[2020-08-10] MEDS: SUCRALFATE 1 GM TAB PO SCH ×2 (18:04→20:42)
[2020-08-10 18:49] LABS: HEMATOCRIT 31.4 % (38.2-49.6); HEMOGLOBIN 9.6 g/dL (14.0-18.0)
[2020-08-10] MEDS: SIMVASTATIN 20 MG TAB PO SCH (20:42)
[2020-08-11] VITALS (7 sets, daily range): BP systolic 125–163; BP diastolic 51–76
[2020-08-11 00:06] LABS: HEMATOCRIT 31.6 % (38.2-49.6)
[2020-08-11] MEDS ORDERED: MELATONIN 5 MG TABLET PO PRN (00:15)
[2020-08-11] MEDS: PANTOPRAZOL 40MG/SOD CHL 0.9% 50 ML IV SCH ×5 (00:57→22:40)
[2020-08-11] MEDS: INSULIN LISPRO 100 UNIT/1 ML 3ML VIAL SQ SCH ×4 (08:34→21:13)
[2020-08-11] MEDS: FUROSEMIDE 40 MG TAB PO SCH (08:35)
[2020-08-11] MEDS: SUCRALFATE 1 GM TAB PO SCH ×4 (08:35→21:12)
[2020-08-11] MEDS: AMLODIPINE BESYLATE 10 MG TAB PO SCH (08:35)
[2020-08-11] MEDS: CYANOCOBALAMIN 1,000 MCG TAB PO SCH (08:36)
[2020-08-11] MEDS: METOPROLOL SUCCINATE 25 MG TAB XL PO SCH (08:36)
[2020-08-11] MEDS: CALCITRIOL 0.25 MCG CAP PO SCH (08:36)
[2020-08-11] MEDS: LOSARTAN POTASSIUM 25 MG TAB PO SCH ×2 (08:36→17:07)
[2020-08-11 09:44] LABS: BASOPHILS # (AUTO) 0.1 (0.0-0.1); BASOPHILS % 0.6 % (0.0-1.0); EOSINOPHILS # (AUTO) 0.3 (0.0-0.4); HEMATOCRIT 25.1 % (38.2-49.6); HEMOGLOBIN 7.8 g/dL (14.0-18.0); LYMPHOCYTES # (AUTO) 1.9 (1.0-3.2); LYMPHOCYTES % 24.7 % (18.0-39.1); MEAN CORPUSCULAR HEMOGLOBIN 26.9 pg (28-32); MEAN CORPUSCULAR HGB CONC 31.1 g/dL (31-35); MEAN CORPUSCULAR VOLUME 86.6 fL (81-99); MONOCYTES # (AUTO) 0.4 (0.2-0.8); NEUTROPHILS # (AUTO) 5.1 (2.1-6.9); NEUTROPHILS % 65.3 % (38.7-80.0); PLATELET COUNT 251 x10e3/uL (140-360); RED CELL DISTRIBUTION WIDTH 15.2 % (11.7-14.4)
[2020-08-11 10:08] LABS: CALCIUM IONIZED 1.4 mmol/L (1.09-1.30)
[2020-08-11 10:14] LABS: ANION GAP 11.2 mmol/L (8-16); CALCIUM 9.1 mg/dL (8.4-10.2); CREATININE, SERUM 1.72 mg/dL (0.72-1.25); POTASSIUM 4.2 mmol/L (3.5-5.1)
[2020-08-11 10:27] LABS: MAGNESIUM 1.9 MG/DL (1.3-2.1); PHOSPHORUS 2.6 MG/DL (2.3-4.7)
[2020-08-11] MEDS ORDERED: ALPRAZOLAM 0.5 MG TAB PO PRN (11:15)
[2020-08-11] MEDS: FLUOXETINE HCL 20 MG CAP PO SCH ×2 (14:28→21:12)
[2020-08-11] MEDS ORDERED: FLUOXETINE HCL 10 MG CAP PO SCH (15:00)
[2020-08-11] MEDS ORDERED: MELATONIN 3 MG TAB PO SCH (21:00)
[2020-08-11] MEDS: SIMVASTATIN 20 MG TAB PO SCH (21:13)
[2020-08-12 00:30] VITALS: BP 154/62
[2020-08-12 01:10] VITALS: BP 162/76
[2020-08-12] MEDS: PANTOPRAZOL 40MG/SOD CHL 0.9% 50 ML IV SCH ×3 (03:48→11:00)
[2020-08-12 04:00] VITALS: BP 138/79
[2020-08-12 07:24] VITALS: BP 138/79
[2020-08-12 07:45] VITALS: BP 140/82
[2020-08-12] MEDS: SUCRALFATE 1 GM TAB PO SCH ×2 (08:14→11:50)
[2020-08-12] MEDS: CYANOCOBALAMIN 1,000 MCG TAB PO SCH (08:17)
[2020-08-12] MEDS: AMLODIPINE BESYLATE 10 MG TAB PO SCH (08:17)
[2020-08-12] MEDS: FLUOXETINE HCL 20 MG CAP PO SCH (08:17)
[2020-08-12] MEDS: CALCITRIOL 0.25 MCG CAP PO SCH (08:17)
[2020-08-12] MEDS: FUROSEMIDE 40 MG TAB PO SCH (08:17)
[2020-08-12] MEDS: LOSARTAN POTASSIUM 25 MG TAB PO SCH (08:17)
[2020-08-12] MEDS: METOPROLOL SUCCINATE 25 MG TAB XL PO SCH (08:17)
[2020-08-12] MEDS: INSULIN LISPRO 100 UNIT/1 ML 3ML VIAL SQ SCH ×2 (08:19→11:37)
[2020-08-12 09:12] LABS: BASOPHILS # (AUTO) 0.1 (0.0-0.1); BASOPHILS % 0.8 % (0.0-1.0); EOSINOPHILS # (AUTO) 0.4 (0.0-0.4); EOSINOPHILS % 4.1 % (0.0-6.0); HEMATOCRIT 26.5 % (38.2-49.6); HEMOGLOBIN 8.3 g/dL (14.0-18.0); LYMPHOCYTES # (AUTO) 2.2 (1.0-3.2); LYMPHOCYTES % 24.1 % (18.0-39.1); MEAN CORPUSCULAR HGB CONC 31.3 g/dL (31-35); MEAN CORPUSCULAR VOLUME 86.3 fL (81-99); MONOCYTES # (AUTO) 0.5 (0.2-0.8); MONOCYTES % 5.2 % (4.4-11.3); NEUTROPHILS # (AUTO) 5.9 (2.1-6.9); NEUTROPHILS % 65.5 % (38.7-80.0); PLATELET COUNT 285 x10e3/uL (140-360); RED BLOOD COUNT 3.07 x10e6/uL (4.3-5.7); RED CELL DISTRIBUTION WIDTH 15.3 % (11.7-14.4)
[2020-08-12 09:15] LABS: CALCIUM 9.4 mg/dL (8.4-10.2); CREATININE, SERUM 1.68 mg/dL (0.72-1.25)
[2020-08-12 11:50] VITALS: BP 134/80
== END 2020-08-12 15:43 | disposition home or self-care (01) | DRG 378 ==
LOC: ER 14:45 → ERHOLD 17:51 → MED/SURG3 22:34
PROVIDERS: ADMIT Internal Medicine; ATTEND Internal Medicine
PROC: 06L38ZZ Occlusion of Esophageal Vein, Via Natural or Artificial Opening Endoscopic (ICD-10-PCS; principal; 2020-08-11)
DX: K25.4 Chronic or unspecified gastric ulcer with hemorrhage (principal); I13.0 Hypertensive heart and chronic kidney disease with heart failure and stage 1 through stage 4 chronic kidney disease, or unspecified chronic kidney disease; I50.32 Chronic diastolic (congestive) heart failure; E11.22 Type 2 diabetes mellitus with diabetic chronic kidney disease; N18.30 Chronic kidney disease, stage 3 unspecified; K44.9 Diaphragmatic hernia without obstruction or gangrene; E78.5 Hyperlipidemia, unspecified; Z79.01 Long term (current) use of anticoagulants; N20.0 Calculus of kidney; I48.0 Paroxysmal atrial fibrillation; Z96.653 Presence of artificial knee joint, bilateral; F32.9 Major depressive disorder, single episode, unspecified; F41.9 Anxiety disorder, unspecified; Z11.59 Encounter for screening for other viral diseases
CPT/HCPCS: 36415; 43255; 74174; 80048; 80053; 81001; 82270; 82607; 82728; 82746; 82948; 83540; 83690; 83735; 84100; 84466; 85014; 85018; 85025; 85045; 85610; 99284; J1610; J2001; J2250; J3010; J7030; J7050; Q9967; U0002